=== PATIENT | female | born 1935 | race Caucasian/White ===

== ENCOUNTER 2017-02-11 12:22 | Inpatient (IN) | payer MEDICARE, OTHER ==
--- NOTE | 2017-02-11 13:03 | RAD ---
AP VIEW OF CHEST: Date: 02/11/17 INDICATION: Shortness of breath. Diminished lung sounds. COMPARISON: Prior exam dated 04/23/16. FINDINGS: Severe COPD change is stable. Cardiomediastinal silhouette is within normal limits. No definite air s pace consolidation, pleural effusion, or pneumothorax is evident. Chronic osseous changes are similar . IMPRESSION: No acute abnormality. POS: [facility]
[2017-02-11 13:53] LABS: #Eosinphils 0.2 thou/uL (0.0-0.7); #Monocytes 0.5 thou/uL (0.11-0.59); %Basophils 0.3 % (0.0-1.0); %Eosinophils 1.8 % (0.0-10.0); %Lymphocytes 11.5 % (21.0-51.0); %Monocytes 5.3 % (0.0-10.0); Hematocrit 35.5 % (36.0-47.0); Mean Platelet Volume 7.1 fL (7.4-10.4); Red Blood Cell (RBC) Count 3.46 mill/uL (4.20-5.40); White Blood Cell (WBC) Count 8.6 thou/uL (4.8-10.8)
[2017-02-11 14:21] LABS: ALT (SGPT) 23 U/L (8-55); AST (SGOT) 20 U/L (5-34); Alkaline Phosphatase 82 U/L (40-150); BUN (Urea Nitrogen) 16 mg/dL (9.8-20.1); Bilirubin, Total 0.3 mg/dL (0.2-1.2); CK (CPK) 131 U/L (29-168); Calc. Creatinine Clearance 0 mL/min (70-130); Calcium 9.6 mg/dL (7.8-10.44); Estimated GFR-MDRD 50; Globulin 3.3 g/dL (2.4-3.5); Protein, Total 7.1 g/dL (6.0-8.3)
[2017-02-11 14:26] LABS: Troponin I Less than 0.010 ng/mL (< 0.028)
[2017-02-11 14:30] LABS: Chloride 98 mmol/L (98-107)
[2017-02-11 14:33] LABS: Anion Gap 10 mmol/L (10-20); Carbon Dioxide 38 mmol/L (23-31)
[2017-02-11] MEDS ORDERED: Albuterol Sulfate 2.5 mg/0.5 ml Neb ONE (14:47)
[2017-02-11] MEDS ORDERED: Albuterol Sulfate 2.5 mg/3 ml Neb ONE (14:47)
[2017-02-11] MEDS ORDERED: Oxymetazoline HCl 0.05% ( 15 ML ) ONE (15:43)
--- NOTE | 2017-02-11 16:19 | HP ---
DATE OF ADMISSION: 02/11/2017 HISTORY OF PRESENT ILLNESS: Shortness of breath and cough with mucus production associated with no fever, no chills. This is going on for few days and gradually got worse to the point that the patien t called EMS and she was taken to the emergency room for further evaluation. She denies any nausea o r vomiting. She denies any other problems. Her artificial marble worker is Dr. Cifuentes. PAST MEDICAL HISTORY: 1. Severe chronic obstructive pulmonary disease, on O2 at home. 2. Hypothyroidism. 3. Hypertension. PAST SURGICAL HISTORY: 1. Thyroid resection. 2. Right fallopian tube removed. 3. Cardiac catheterization. SOCIAL HISTORY: Ex-smoker, quit when she was at the age of 66. She drinks alcohol on and off, mainl y wine. She denies any illicit drug use. FAMILY HISTORY: Strong family history for premature coronary artery disease, stroke and cancer. ALLERGIES: None. CODE STATUS: Full. CURRENT MEDICATIONS: To be obtained. REVIEW OF SYSTEMS: CONSTITUTIONAL: Negative for weight loss or gain. Negative for fever and chills. EYES: Negative for eye pain and eye discharge. ENT: Negative for epistaxis. Positive for nasal congestion and no stuffiness. CARDIOVASCULAR: Negative for palpitations and chest pain. RESPIRATORY: Positive for shortness of breath and productive cough. GASTROINTESTINAL: Negative for nausea and vomiting. GENITOURINARY: Negative for hematuria and dysuria. MUSCULOSKELETAL: Negative for pain and swelling. NEUROLOGIC: Negative for headache and dizziness. ONCOLOGY: Negative for easy bruising or clotting abnormalities. PHYSICAL EXAMINATION: VITAL SIGNS: Blood pressure is 110/52, pulse is 94, respiratory rate is 29, pulse oximetry is 93% on BiPAP. Her temperature is 98.1. HEENT: Atraumatic, normocephalic. Eyes: PERRLA. Sclerae nonicteric. Conjunctivae pinkish. The p atient wears the BiPAP mask, so the oral cavity is not examined. NECK: JVD negative. LUNGS: Very emphysematous. No wheezing, no crackles. HEART: S1, S2 normal. No S3, no S4. ABDOMEN: Soft, nontender, bowel sounds are present, no organomegaly. EXTREMITIES: No clubbing, cyanosis or edema. NEUROLOGIC: She is alert and oriented x4. There are no any specific findings or focal deficits. SKIN: No rash or erythema. LABORATORY AND X-RAY FINDINGS: Showed a white count of 8.6, hemoglobin 11.5, hematocrit 35.5, platel et count is 316, 81.2% neutrophils. Sodium 141, potassium 4.5, chloride 98, CO2 38, BUN 16, creatini ne 1.05. Glucose 143. Rest of chemistry within normal limits. Chest x-ray personally reviewed by desire martel, did not show any acute infiltrate. She has chronic changes in the mid and lower lobes along with severe COPD changes. EKG showed normal sinus rhythm, ventricular rate of 85 beats per minute, nonspe cific ST-T wave changes. This was personally reviewed by me. IMPRESSION: 1. Acute exacerbation of chronic obstructive pulmonary disease with negative testing for influenza A and B most likely viral infection with trigger. 2. Acute on chronic respiratory failure, on O2 at home. 3. Hypertension. 4. Hypothyroidism. PLAN: Full admission to MICU. Condition is guarded. IV normal saline at 100 mL per hour, DuoNebs q .4 h., Solu-Medrol 40 mg every 6 hours IV push after she received 125 mg per EMS, levofloxacin she was given 750 mg in the emergency room. We will continue the same dose. We will get Pulmonary consu ltation with Dr. Cifuentes. I am going to discontinue her BiPAP and switch her to nasal cannula if it is possible, and she will continue her home meds after review them and make some recommendations. We are going to keep her on deep venous thrombosis prophylaxis with Lovenox and SCDs and PUD prophylaxi s with H2 jose.
[2017-02-11 17:45] LABS: Troponin I 0.011 ng/mL (< 0.028)
[2017-02-11] MEDS ORDERED: Acetaminophen 325 MG TAB PO PRN (20:04)
[2017-02-11 20:54] LABS: Troponin I 0.011 ng/mL (< 0.028)
[2017-02-11] MEDS: Sodium Chloride 0.9% 1,000 ML IV SCH (20:54)
[2017-02-11] MEDS ORDERED: ALPRAZolam 0.25 MG TAB PO PRN (21:33)
[2017-02-11] MEDS: Famotidine 20 MG TAB PO SCH (21:49)
[2017-02-12 02:48] VITALS: BMI 21.4
[2017-02-12 05:00] LABS: #Lymphocytes 0.9 thou/uL (1.20-3.40); #Monocytes 0.2 thou/uL (0.11-0.59); #Neutrophils 8.6 thou/uL (1.40-6.50); %Eosinophils 0.5 % (0.0-10.0); %Lymphocytes 9.6 % (21.0-51.0); %Monocytes 1.9 % (0.0-10.0); Hematocrit 35.7 % (36.0-47.0); Mean Platelet Volume 7.3 fL (7.4-10.4); Red Blood Cell (RBC) Count 3.49 mill/uL (4.20-5.40); White Blood Cell (WBC) Count 9.8 thou/uL (4.8-10.8)
[2017-02-12 05:13] LABS: Anion Gap 14 mmol/L (10-20); BUN (Urea Nitrogen) 22 mg/dL (9.8-20.1); Calc. Creatinine Clearance 46 mL/min (70-130); Calcium 9.7 mg/dL (7.8-10.44); Carbon Dioxide 33 mmol/L (23-31); Chloride 99 mmol/L (98-107); Estimated GFR-MDRD 59
[2017-02-12] MEDS: Famotidine 20 MG TAB PO SCH ×2 (07:35→20:31)
[2017-02-12] MEDS: Sodium Chloride 0.9% 1,000 ML IV SCH ×2 (07:40→22:38)
[2017-02-12] MEDS: Losartan Potassium 25 MG TAB PO SCH (09:51)
[2017-02-12] MEDS: Amlodipine 5 MG TAB PO SCH (09:52)
--- NOTE | 2017-02-12 13:04 | PRG ---
DATE OF SERVICE: 02/12/2017 SUBJECTIVE: The patient is seen and examined at the bedside. She is feeling significantly better th is morning. Her shortness of breath improved. OBJECTIVE: VITAL SIGNS: Blood pressure is 142/81, pulse is 87, temperature is 98.6, and respiratory rate is flu ctuating from 26-32. She is on 3 liters by nasal cannula and she is saturating between 96% and 98%. HEENT: Atraumatic, normocephalic. Pupils are responding to light properly. NECK: Supple. JVD is plus bilaterally. LUNGS: Emphysematous. No wheezing, no rales. HEART: S1, S2, very distant. No S3, no S4. ABDOMEN: Soft, nontender. EXTREMITIES: No clubbing, cyanosis or edema. NEUROLOGIC: She is alert and oriented x4. There is not any motor or sensory deficit. LABORATORY DATA: Showed white count of 9.8, hemoglobin 11.3, hematocrit 35.7, platelet count is 329, 000. Chemistry showed sodium of 141, potassium 4.6, chloride 99, CO2 33, BUN 22, creatinine 0.91, gl ucose 141. Two sets of cardiac enzymes showed normal troponin. IMPRESSION: 1. Acute exacerbation of chronic obstructive pulmonary disease, most likely started as a viral infec tion. 2. Acute on chronic respiratory failure, on O2 at home. 3. Hypertension. 4. Hypothyroidism. PLAN: To continue DuoNebs q.4, Solu-Medrol 40 mg q.6 IV push and continue levofloxacin 750 mg IV pig gyback daily and we will obtain pulmonary consultation. We will continue her DVT prophylaxis and PUD prophylaxis as well.
--- NOTE | 2017-02-12 14:39 | CON ---
DATE OF CONSULTATION: 02/12/2017 HISTORY OF PRESENT ILLNESS: Ms. Rico is an 82-year-old female who sees Dr. Cifuentes, admitted wit h acute exacerbation and underlying chronic lung disease. She presented to the ER with a several day history of increasing shortness of breath and cough, but no fever or chills. In the ER, she was giv en a neb treatment without much relief. She is now admitted. On most days, she says she can walk up to a mile without getting markedly dyspneic. PAST MEDICAL HISTORY: Hypertension, COPD and hypothyroidism. PAST SURGICAL HISTORY: Thyroid surgery. SOCIAL AND FAMILY HISTORY: Former smoker, quit smoking 15 years ago. MEDICATIONS: List of medicine from home includes amlodipine 2.5, Singulair 10, losartan 50, Synthroi d 150, DuoNeb 5 a day, Xanax 0.125 and Brovana. REVIEW OF SYSTEMS: Ten-point negative. PHYSICAL EXAMINATION: GENERAL: In moderate distress. VITAL SIGNS: Respirations 25, temperature 98 and blood pressure 153/63. CHEST: Decreased breath sounds without any wheezing. Expirations prolonged. CARDIAC: Normal S1 and S2. No gallops. ABDOMEN: Soft. No masses. LABORATORY AND IMAGING DATA: White count 9,000, hemoglobin and hematocrit 11 and 35, platelet count 325. Electrolytes are normal. Chest x-ray was normal. Flu test was negative. IMPRESSION: Acute on chronic respiratory failure secondary to chronic obstructive pulmonary disease and pneumonia. Medicines are making her nervous and shaky. I will cut back on nebs to q.6 hours. We will add Duler a, ready to give her IV antibiotics. No evidence of any pneumonia. Probably switch her over to oral Levaquin. We will notify Dr. Cifuentes.
[2017-02-12] MEDS ORDERED: Arformoterol 15 MCG/2 ML NEB NEB SCH (18:30)
[2017-02-12] MEDS ORDERED: Budesonide 0.5 MG/2 ML NEB NEB SCH (18:30)
[2017-02-12] MEDS: Mometasone/Formoterol 120 PUFF INHALER INH SCH (18:58)
[2017-02-12] MEDS: Montelukast Sodium 10 mg Tablet PO SCH (20:31)
[2017-02-12] MEDS: ALPRAZolam 0.25 MG TAB PO PRN (20:42)
[2017-02-13] MEDS: Levothyroxine Sodium 150 MCG TAB PO SCH (04:37)
[2017-02-13] MEDS ORDERED: guaiFENesin/Codeine Phosphate 200 mg/20 mg 10 ml UD Cup PO PRN (07:42)
[2017-02-13] MEDS: Mometasone/Formoterol 120 PUFF INHALER INH SCH ×2 (08:44→18:52)
[2017-02-13] MEDS: Amlodipine 5 MG TAB PO SCH (08:47)
[2017-02-13] MEDS: Losartan Potassium 25 MG TAB PO SCH (08:47)
[2017-02-13] MEDS: Famotidine 20 MG TAB PO SCH ×2 (08:48→20:13)
--- NOTE | 2017-02-13 13:49 | PRG ---
DATE OF SERVICE: 02/13/2017 SUBJECTIVE: The patient is seen and examined at bedside. She is doing slightly better. Her breathi ng is improved. She was seen by a spanish interpreter who recommends to switch her to oral Levaquin and co ntinue IV steroids along with nebulizers. OBJECTIVE: VITAL SIGNS: Blood pressure is 134/64, pulse is 86, temperature is 98.5, respirations 24, and O2 sat uration is 94% on 3 liters by nasal cannula. HEENT: Eyes are PERRLA. Oral mucosa is moist. NECK: Supple. JVD +1 similar bilaterally. LUNGS: Very emphysematous. No crackles, no wheezing, no rales. HEART: S1, S2 normal, no S3, no S4. ABDOMEN: Soft, nontender, bowel sounds are present, no organomegaly. EXTREMITIES: No clubbing, cyanosis or edema. NEUROLOGIC: She is alert and oriented x4. There are not any sensory deficits present. LABORATORY DATA: None today. IMPRESSION: 1. Exacerbation of chronic obstructive pulmonary disease. 2. Acute on chronic respiratory failure, on home O2. 3. Hypertension. 4. Hypothyroidism. PLAN: To continue her IV steroids. Continue p.o. levofloxacin. Continue DuoNebs. This strength wa s cutback because of her tremor and anxiety she experienced with the full dose of DuoNebs. We are go ing to continue montelukast and inhaled steroids and we will continue close monitoring. So she is ve ry high risk for complications.
--- NOTE | 2017-02-13 13:52 | PRG ---
DATE OF SERVICE: 02/13/2017 SUBJECTIVE: This morning, she is awake, alert, responsive, complaining of cough, but no shortness of breath. PHYSICAL EXAMINATION: VITAL SIGNS: Sats are 93% on 3 liters, respiratory rate 20, pulse 75, blood pressure 130/80. CHEST: No wheezing. CARDIAC: Normal S1, S2. No gallops. ABDOMEN: Soft, no masses. IMPRESSION: 1. Chronic obstructive pulmonary disease exacerbation. 2. Bronchitis. PLAN: I add Tessalon, continue steroids, neb treatments, empiric antibiotics. We will notify Dr. Cifuentes in the morning.
[2017-02-13] MEDS: Benzonatate 100 MG CAP PO SCH ×2 (15:31→20:13)
[2017-02-13] MEDS: Montelukast Sodium 10 mg Tablet PO SCH (20:14)
[2017-02-13] MEDS: ALPRAZolam 0.25 MG TAB PO PRN (20:20)
[2017-02-14] MEDS: Levothyroxine Sodium 150 MCG TAB PO SCH (06:06)
[2017-02-14] MEDS: Mometasone/Formoterol 120 PUFF INHALER INH SCH ×2 (07:00→18:40)
[2017-02-14] MEDS: Losartan Potassium 25 MG TAB PO SCH (08:05)
[2017-02-14] MEDS: Famotidine 20 MG TAB PO SCH ×2 (08:06→19:53)
[2017-02-14] MEDS: Benzonatate 100 MG CAP PO SCH ×3 (08:06→19:53)
[2017-02-14] MEDS: Amlodipine 5 MG TAB PO SCH (08:06)
--- NOTE | 2017-02-14 08:24 | PRG ---
DATE OF SERVICE: 02/14/2017 SUBJECTIVE: She feels better, but not quite strong enough to go home. OBJECTIVE: VITAL SIGNS: Temperature is 97.5, pulse 77, blood pressure 176/75, O2 sat 97%, respiratory rate 20. HEENT: Unremarkable. NECK: No JVD. LUNGS: Distant, but clear breath sounds. CARDIAC: S1 and S2 regular. ABDOMEN: Soft. EXTREMITIES: No edema. ASSESSMENT: Chronic obstructive pulmonary disease with exacerbation. PLAN: 1. Initiate physical therapy. 2. I think that she can go home as early as tomorrow.
--- NOTE | 2017-02-14 18:38 | PDOC.PN ---
- Subjective Encounter Start Date: 02/14/17 Encounter Start Time: 18:36 Subjective: Seen and examined feeling better - Objective Resuscitation Status: Resuscitation Status FULL:Full Resuscitation Vital Signs & Weight: Vital Signs (12 hours) Temp Pulse Resp BP BP Pulse Ox 02/14/17 16:04 98.5 F 84 20 185/71 H 92 L 02/14/17 11:15 98.5 F 84 22 H 177/80 H 89 L 02/14/17 08:06 77 176/75 H 02/14/17 08:00 98.1 F 77 20 97 02/14/17 07:50 97.5 F L 77 20 176/75 H 97 02/14/17 06:57 81 14 89 L Weight Weight 138 lb 1.6 oz I&O: 02/13/17 02/14/17 02/15/17 06:59 06:59 06:59 Intake Total 3464 240 560 Output Total 750 Balance 2714 240 560 Result Diagrams: 02/12/17 04:32 02/12/17 04:31 Phys Exam - Physical Examination Constitutional: NAD HEENT: PERRLA, moist MMs, sclera anicteric, TM's clear Neck: no nodes, no JVD, supple, full ROM Respiratory: no wheezing Cardiovascular: RRR, no significant murmur, no rub Gastrointestinal: soft, non-tender, no distention, positive bowel sounds Musculoskeletal: pulses present Dx/Plan (1) Acute hypoxemic respiratory failure Code(s): J96.01 - ACUTE RESPIRATORY FAILURE WITH HYPOXIA Status: Acute (2) COPD exacerbation Code(s): J44.1 - CHRONIC OBSTRUCTIVE PULMONARY DISEASE W (ACUTE) EXACERBATION Status: Acute (3) Respiratory failure, chronic Code(s): J96.10 - CHRONIC RESPIRATORY FAILURE, UNSP W HYPOXIA OR HYPERCAPNIA Status: Acute Qualifiers: Respiratory failure complication: hypoxia and hypercapnia Qualified Code(s) : J96.11 - Chronic respiratory failure with hypoxia (4) Hypertension Code(s): I10 - ESSENTIAL (PRIMARY) HYPERTENSION Status: Chronic (5) Hypothyroidism Code(s): E03.9 - HYPOTHYROIDISM, UNSPECIFIED Status: Chronic - Plan continue antibiotics, PT/OT, social media senior associate, respiratory therapy Appreciate pulmonary input -: Dispo planning possibly next 24hrs * .
[2017-02-14] MEDS: Montelukast Sodium 10 mg Tablet PO SCH (19:53)
[2017-02-14] MEDS: ALPRAZolam 0.25 MG TAB PO PRN (22:28)
[2017-02-15] MEDS: Levothyroxine Sodium 150 MCG TAB PO SCH (04:50)
[2017-02-15] MEDS: Mometasone/Formoterol 120 PUFF INHALER INH SCH (06:22)
[2017-02-15 07:48] VITALS: TEMP 98.5
[2017-02-15] MEDS: Losartan Potassium 25 MG TAB PO SCH (08:44)
[2017-02-15] MEDS: Famotidine 20 MG TAB PO SCH (08:44)
[2017-02-15] MEDS: Amlodipine 5 MG TAB PO SCH (08:45)
[2017-02-15] MEDS: Benzonatate 100 MG CAP PO SCH (08:45)
--- NOTE | 2017-02-15 09:30 | PRG ---
DATE OF SERVICE: 02/15/2017 She feels better, but says she is still very weak and she is concerned about going home by herself. PHYSICAL EXAMINATION: VITAL SIGNS: Temperature 98.5, pulse 106, respirations 20, O2 sat 91%, blood pressure 160/79. HEENT: Unremarkable. NECK: No JVD. CHEST: Clear. No wheezing. CARDIAC: S1 and S2 regular. ABDOMEN: Soft. EXTREMITIES: No edema. ASSESSMENT: Chronic obstructive pulmonary disease with exacerbation. PLAN: I think she is stable to go home. I would finish out 7 days of Levaquin and taper her steroid s over a couple of weeks. She is likely to need some type of home health to assist her with her acti vities of daily living.
--- NOTE | 2017-02-15 11:49 | PDOC.PN ---
- Subjective Encounter Start Date: 02/15/17 Encounter Start Time: 11:30 Subjective: continued SOB, wheezing, coughing, and fatigue, improved from -: admit - Objective Resuscitation Status: Resuscitation Status FULL:Full Resuscitation MAR Reviewed: Yes Vital Signs & Weight: Vital Signs (12 hours) Temp Pulse Resp BP BP BP Pulse Ox 02/15/17 11:40 85 18 92 L 02/15/17 11:36 92 L 02/15/17 08:45 87 160/79 H 02/15/17 08:00 98.5 F 106 H 22 H 91 L 02/15/17 07:47 98.5 F 106 H 22 H 160/79 H 91 L 02/15/17 06:22 91 14 91 L 02/15/17 06:19 91 14 91 L 02/15/17 04:00 98.1 F 91 20 148/68 H 96 02/15/17 00:57 90 L 02/15/17 00:56 90 L 02/15/17 00:00 98.1 F 83 22 H 175/80 H 96 Weight Weight 138 lb 1.6 oz I&O: 02/14/17 02/15/17 02/16/17 06:59 06:59 06:59 Intake Total 240 560 120 Balance 240 560 120 Result Diagrams: 02/12/17 04:32 02/12/17 04:31 Phys Exam - Physical Examination Constitutional: NAD HEENT: moist MMs Respiratory: no rales, no rhonchi occ wheeze, moderate air movement throughout Cardiovascular: RRR Gastrointestinal: soft, positive bowel sounds Neurological: non-focal, moves all 4 limbs Psychiatric: normal affect, A&O x 3 Dx/Plan (1) Acute hypoxemic respiratory failure Code(s): J96.01 - ACUTE RESPIRATORY FAILURE WITH HYPOXIA Status: Acute (2) COPD exacerbation Code(s): J44.1 - CHRONIC OBSTRUCTIVE PULMONARY DISEASE W (ACUTE) EXACERBATION Status: Acute Plan: improved, ok to d/c home per pulmonology. (3) Hypertension Code(s): I10 - ESSENTIAL (PRIMARY) HYPERTENSION Status: Chronic (4) Hypothyroidism Code(s): E03.9 - HYPOTHYROIDISM, UNSPECIFIED Status: Chronic - Plan cont current plan of care, continue antibiotics D/C home with home health * . - Discharge Day Encounter end time: 12:00
[2017-02-15 12:57] VITALS: BP 175/70
--- NOTE | 2017-02-15 18:57 | DIS ---
DATE OF ADMISSION: 02/11/2017 DATE OF DISCHARGE: 02/15/2017 PRIMARY CARE PHYSICIAN: Janes Oconnor M.D. ADMISSION DIAGNOSES: 1. Acute exacerbation of chronic obstructive pulmonary disease. 2. Acute on chronic hypoxic respiratory failure. 3. Hypertension. 4. Hypothyroidism. DISCHARGE DIAGNOSES: 1. Acute exacerbation of chronic obstructive pulmonary disease. 2. Acute on chronic hypoxic respiratory failure. 3. Hypertension. 4. Hypothyroidism. PROCEDURES: None. CONSULTATIONS: Pulmonology, Dr. Kennedy. SUMMARY OF HOSPITAL COURSE: This is an 82-year-old white female with a known history of COPD who has had a few days history of worsening shortness of breath, cough and mucus production. She was seen i n the emergency room and diagnosed with COPD exacerbation and admitted. Dr. Kennedy was consulted for P ulmonology. The patient did not have a pneumonia on her chest x-ray and had a negative influenza nicky ting. She was put on antibiotics and IV steroids with improvement in her symptoms. She was eventual ly able to be weaned back down to her home level of oxygen. On day of discharge, the patient was see n by Dr. Cifuentes and was cleared to discharge home. DISCHARGE MANAGEMENT: Discharge home to her apartment at the [facility]. Follow up with Dr. Arjun dyer in [address] Cifuentes as instructed. [facility] and [facility]. ACTIVITIES: As tolerated. DIET: Regular diet. DISCHARGE MEDICATIONS: 1. Tessalon 100 mg 3 times a day as needed for cough, 30 tablets dispensed. 2. Levofloxacin 500 mg daily for 3 more days. 3. Prednisone 5 mg tablets 52 tablets taper for the next 3 weeks. The patient is also to resume her home medications. 4. Amlodipine 2.5 mg daily. 5. Singular 10 mg daily. 6. Losartan 50 mg daily. 7. Levothyroxine 150 mcg daily. 8. DuoNeb as needed. 9. Budesonide 0.5 mg neb twice a day. 10. Aspirin 81 mg daily. 11. Xanax 0.125 mg at night as needed. 12. Brovana 15 mcg neb twice a day.
[2017-02-15] MEDS ORDERED: predniSONE 20 MG TAB PO SCH (21:00)
== END 2017-02-15 15:21 | disposition home health service (06) | DRG 189 ==
LOC: ERS 12:22 → IMCU/EMU 15:30 → T4-A 02-13 15:49
PROVIDERS: ADMIT Internal Medicine; ATTEND Internal Medicine
DX: J96.21 Acute and chronic respiratory failure with hypoxia (principal); J44.1 Chronic obstructive pulmonary disease with (acute) exacerbation; Z99.81 Dependence on supplemental oxygen; I10 Essential (primary) hypertension; E03.9 Hypothyroidism, unspecified; Z87.891 Personal history of nicotine dependence
CPT/HCPCS: 36415; 71010; 80048; 80053; 82553; 84484; 85025; 93005; 94640; 94660; 94760; 96365; 96366; A4216; G8978-GP-CJ; G8979-GP-CJ; G8980-GP-CJ; J1956; J2920; J7611; J7620

== ENCOUNTER 2018-02-08 09:48 | Inpatient (IN) | payer MEDICARE, OTHER ==
[2018-02-08] MEDS ORDERED: methylPREDNISolone Sod Succ/PF 125 MG/2 ML VIAL ONE (09:59)
[2018-02-08] MEDS ORDERED: Magnesium 2 GM/50 ML BAG (IN WATER) ONE (09:59)
[2018-02-08 10:21] LABS: Hemoglobin 12.9 g/dL (12.0-16.0); Mean Corpuscular Hemoglobin 30.6 pg (27.0-31.0); Mean Corpuscular Volume 98.7 fL (78.0-98.0); Mean Platelet Volume 8.9 fL (7.4-10.4); Platelet Count 193 thou/uL (130-400); RBC Distribution Width 12.5 % (11.5-14.5); Red Blood Cell (RBC) Count 4.21 mill/uL (4.20-5.40); White Blood Cell (WBC) Count 8.7 thou/uL (4.8-10.8)
[2018-02-08 10:35] LABS: Band 8 % (5-11); Lymphocytes 29 % (21-51); MDiff Complete? YES; Monocytes 8 % (0-10); Neutrophil 55 % (42-75); RBC Morphology Normal
[2018-02-08 10:45] LABS: ALT (SGPT) 16 U/L (8-55); AST (SGOT) 22 U/L (5-34); Albumin 4.5 g/dL (3.4-4.8); Alkaline Phosphatase 94 U/L (40-150); Anion Gap 18 mmol/L (10-20); BUN (Urea Nitrogen) 18 mg/dL (9.8-20.1); Bilirubin, Total 0.6 mg/dL (0.2-1.2); Calc. Creatinine Clearance 0 mL/min (70-130); Calcium 9.4 mg/dL (7.8-10.44); Carbon Dioxide 28 mmol/L (23-31); Chloride 99 mmol/L (98-107); Estimated GFR-MDRD 61; Glucose 122 mg/dL (83-110); Potassium 4.7 mmol/L (3.5-5.1); Protein, Total 7.5 g/dL (6.0-8.3); Sodium 140 mmol/L (136-145)
--- NOTE | 2018-02-08 11:10 | RAD ---
FRONTAL RADIOGRAPH CHEST: DATE: 02/08/2018. COMPARISON: 02/11/2017. HISTORY: Fever and cough, shortness of breath. FINDINGS: There is atherosclerotic calcification in the aortic arch. There is diffuse increased linear interst itial density with pulmonary hyperinflation, consistent with COPD/extensive emphysematous change. Th mati findings are stable. There is stable increased density along the inferior aspect of the left jenn g base with blunting of the left costophrenic angle, unchanged when compared to prior imaging. No ac [place] findings are seen. IMPRESSION: Stable appearance of the chest. POS: [facility]
[2018-02-08 11:17] LABS: Actual Bicarbonate (HCO3a) 34.1 mEq/L (22-28); Base Excess (BEa) 4.8 mEq/L (-2.0 to +3.0); O2 Tension (PaO2) 98.3 mmHg (> 60.0); pH, Arterial 7.28 (7.35-7.45)
[2018-02-08 11:18] LABS: Analyzer IN Cardio ER; Calcium, Ionized 1.23 mmol/L (1.12-1.30); Carboxyhemoglobin (COHb) 0.4 gm% (0.0-3.0); Hemoglobin (Hb) 13.3 g/dL (12.0-16.0); Potassium - ABG Lab 3.94 mmol/L (3.70-5.30)
[2018-02-08 11:23] LABS: Puncture Site RRA
[2018-02-08 13:02] LABS: Bilirubin Negative (Negative); Blood, Urine Negative (Negative); Clarity CLEAR (Clear); Glucose, Urine (Dipstick) Negative (Negative); Leukocyte Negative (Negative); Nitrite Negative (Negative); Protein, Urine (Dipstick) 30 mg/dL (Neg-Trace); Specific Gravity, Urine 1.015 (1.002-1.036); Urobilinogen 0.2 mg/dL (0.2-1.0)
[2018-02-08 13:08] LABS: Bacteria/HPF None Seen HPF (None Seen); Pathc Cast-AUWi Flag 2.32 (0-2.49); RBC/HPF 0-3 HPF (0-3); Squamous Epithelial 0-3 HPF (0-3); WBC/HPF 0-3 HPF (0-3)
[2018-02-08 13:24] LABS: Hyaline Casts/LPF 4-6 HYALINE CAST LPF (0-3 Hyaline); Other Casts/LPF 0-3 FINELY GRAN LPF (0-3 Hyaline)
--- NOTE | 2018-02-08 14:12 | HP ---
PRIMARY CARE PHYSICIAN: Janes Oconnor MD. PRIMARY PAINT STRIPPER: Dr. Cifuentes. REASON FOR ADMISSION: Acute COPD exacerbation, acute on chronic respiratory failure with hypoxia and hypercapnia. HISTORY OF PRESENT ILLNESS: An 83-year-old female with a history of hypertension, hypothyroidism, severe COPD as well as chronic respiratory failure on home oxygen therapy, who was brought to emergency room for increasing shortness of breath. The patient's shortness of breath started on Tuesday. She was not able to sleep for next couple of days because of increasing shortness of breath. She started using her home prednisone as well as she was using more frequently nebulizer therapy without any improvement. Last night, she was not able to sleep at all. She was not able to eat, and she was having increasing amount of cough productive of white sputum. She did not have any chills, but she was feeling subjective fevers. She was feeling nasal congestion. She denies any flu-like illness. She denies any hemoptysis, chest pain, palpitation, or syncope. She denies any PNDs or lever extremity swelling, but she was not able to lie down flat because of shortness of breath. Because of coughing, she was getting soreness over her chest and abdomen. She denies any recent travel or sick exposure. She is up-to-date in her flu vaccination. REVIEW OF SYSTEMS: CONSTITUTIONAL: Negative for weight loss or gain, ability to conduct usual activities. SKIN: Negative for rash, itching. EYES: Negative for double vision, pain. ENT/MOUTH: Negative for nose bleeding, neck stiffness, pain, tenderness. CARDIOVASCULAR: Negative for palpitations, dyspnea on exertion, orthopnea. RESPIRATORY: Negative for shortness of breath, wheezing, cough, hemoptysis, fever or night sweats. GASTROINTESTINAL: Negative for poor appetite, abdominal pain, heartburn, nausea, vomiting, constipation, or diarrhea. GENITOURINARY: Negative for urgency, frequency, dysuria, nocturia. MUSCULOSKELETAL: Negative for pain, swelling. NEUROLOGIC/PSYCHIATRIC: Negative for anxiety, depression. ALLERGY/IMMUNOLOGIC: Negative for skin rash, bleeding tendency. Please see my HPI for pertinent positive and negative. All other review of systems reviewed and negative, except as mentioned in HPI. ALLERGIES: NO KNOWN DRUG ALLERGIES. CURRENT HOME MEDICATIONS: 1. Losartan 50 mg p.o. daily. 2. Synthroid 150 mcg p.o. daily. 3. Aspirin 81 mg daily. 4. Brovana 15 mcg nebulization twice daily. 5. Pulmicort nebulization twice daily. 6. Amlodipine 2.5 mg daily. 7. Singulair 10 mg p.o. daily. 8. Cetirizine 10 mg p.o. daily. PAST MEDICAL HISTORY: Hypertension, hypothyroidism, severe COPD, chronic respiratory failure on home oxygen therapy, allergic rhinitis. PAST SURGICAL HISTORY: Thyroidectomy. PAST PSYCHIATRIC HISTORY: Reviewed and negative. SOCIAL HISTORY: The patient drinks alcohol socially. She is former smoker. She quit smoking more than 15 years ago. She denies any other illicit drug abuse. She lives at home with family. FAMILY HISTORY: No family history of strong coronary artery disease, stroke, or cancer. EMERGENCY ROOM COURSE: The patient has received DuoNeb therapy x2, Solu-Medrol 125 mg, and magnesium sulfate 2 g. PHYSICAL EXAMINATION: VITAL SIGNS: On arrival, blood pressure 184/92, temperature 99.6, saturation 96% on BiPAP, pulse 125, respiratory rate 36, weight 65.7 kg. GENERAL: The patient is currently on BiPAP. She is in [id number] respiratory distress. The patient does not able to talk in full sentence. HEENT: Head; normocephalic, atraumatic. Eyes; pupils round, reactive to light. Extraocular muscles intact. ENT; oropharynx within normal limits. Moist mucous membranes. No oral lesion. No pharyngeal erythema. No exudate. NECK: Supple. No JVD. No thyromegaly. No carotid bruit. No jugular venous distention. LUNGS: Air entry significantly reduced. Accessory muscles of respiration in use. End expiratory wheezing heard. No rales. CARDIAC: S1, S2, regular, tachycardia. No murmur. No gallop. No rub. Distant heart sound. BACK: Unremarkable. No CVA tenderness. EXTREMITIES: Upper extremity, passive movement of all joints are normal. Lower extremity, no edema, good distal pulsation. ABDOMEN: Soft and benign without any tenderness. No suprapubic tenderness. NEUROLOGICAL: Nonfocal neurological examination. LABORATORY DATA: Significant labs: CBC; WBC 8.7, hemoglobin 12.9, platelet 193 with bandemia. ABG; pH of 7.28, bicarb of 34.1, CO2 of 75.0, O2 of 98.3, saturation of 96.7 on BiPAP. BMP; sodium 140, potassium 4.7, chloride 99, carbon dioxide 28, BUN 18, creatinine 0.88, glucose 122, calcium 9.4. Lactic acid 1.2. LFT; AST 22, ALT 16, alkaline phosphatase 94, albumin 4.5. Cardiac enzymes, troponin I is less than 0.010. BNP 344.0. ASSESSMENT AND PLAN: 1. Acute on chronic respiratory failure with hypoxia and hypercapnia. 2. Severe chronic obstructive pulmonary disease exacerbation. 3. Diastolic heart failure with a history of moderate to severe tricuspid regurgitation. 4. Hypertension. 5. Hypothyroidism. PLAN: 1. IMCU admission, Pulmonology consultation, BiPAP. 2. DuoNeb q.4 hourly and p.r.n., Brovana nebulization twice daily, Pulmicort nebulization twice daily, Solu-Medrol 40 mg IV q.6 hourly, Mucinex 600 mg twice daily, empiric antibiotic therapy with Levaquin 750 mg IV daily. We will resume the patient's home medication with losartan 50 mg daily, levothyroxine 150 mcg p.o. daily, amlodipine 2.5 mg p.o. daily, Singulair 10 mg p.o. daily. The patient is up-to-date in flu vaccination this year. We will obtain echocardiography to assess EF and other structural abnormality for elevated BNP. 3. DVT prophylaxis. Lovenox 40 mg subcu daily. 4. GI prophylaxis. Pepcid 20 mg p.o. b.i.d. CODE STATUS: Discussed with the patient and the patient's family member. The patient is a DNR. DISPOSITION PLAN: Based on clinical course, we are expecting the patient's stay in the hospital more than two midnights. Plan of care discussed with the patient in detail. Job ID: [id number]
[2018-02-08] MEDS ORDERED: Ondansetron ODT 4 MG TAB SL PRN (14:14)
[2018-02-08] MEDS ORDERED: hydrALAZINE 20 MG/ML VIAL SLOW IVP PRN (14:14)
[2018-02-08] MEDS ORDERED: Diabetic Tussin 200 MG/10 ML UDCUP PO PRN (14:14)
[2018-02-08] MEDS ORDERED: HYDROcodone/Acetaminophen 5/325 mg Tablet PO PRN (14:14)
[2018-02-08] MEDS ORDERED: Eucerin (Mineral Oil/Petrolatum,White) 30 gm Jar TOP PRN (14:14)
[2018-02-08] MEDS ORDERED: Bisacodyl 10 MG SUPP PR PRN (14:14)
[2018-02-08] MEDS ORDERED: Ondansetron PF 4 MG/2 ML Vial IVP PRN ×2 (14:14)
[2018-02-08] MEDS ORDERED: Sodium Chloride 0.65% Nasal 44 ML BOT EA NARE PRN (14:14)
[2018-02-08] MEDS ORDERED: Acetaminophen 325 MG TAB PO PRN ×2 (14:14)
[2018-02-08] MEDS ORDERED: Cepastat Lozenges 1 LOZ PO PRN (14:14)
[2018-02-08] MEDS ORDERED: Calcium Carbonate 500 MG ChewTAB PO PRN (14:14)
[2018-02-08] MEDS ORDERED: cloNIDine 0.1 MG TAB PO PRN (14:14)
[2018-02-08] MEDS ORDERED: Artificial Tears 18 DROP/0.9 ML EA EYE PRN (14:14)
[2018-02-08] MEDS ORDERED: Ondansetron ODT 4 MG TAB PO PRN (14:14)
[2018-02-08] MEDS ORDERED: Loratadine 10 MG TAB PO PRN (14:14)
[2018-02-08] MEDS ORDERED: Zolpidem Tartrate 5 MG TAB PO PRN (14:14)
[2018-02-08] MEDS ORDERED: Senokot S 8.6-50 MG TAB PO PRN (14:14)
[2018-02-08] MEDS ORDERED: Loperamide HCl 2 MG CAP PO PRN (14:14)
[2018-02-08 14:51] VITALS: BMI 22.1
[2018-02-08] MEDS: Budesonide 0.5 MG/2 ML NEB INH SCH (18:45)
[2018-02-08] MEDS: Arformoterol 15 MCG/2 ML NEB NEB SCH (18:46)
--- NOTE | 2018-02-08 21:11 | CON ---
DATE OF CONSULTATION: 02/08/2018 This encompassed 50 minutes of time; of that time, greater than 50% was spent with the patient and/or in the patient's unit in the hospital. REASON FOR CONSULTATION: COPD exacerbation. HISTORY OF PRESENT ILLNESS: Denia is an 83-year-old female, whom I have known for a number of years. Today, she called the office requesting antibiotics and steroids because she felt poorly. Within a few minutes, we called her back, but she had already headed to the emergency room. In the emergency room, she was felt bad enough to be intubated, but the patient refused. She has told me in the past that she does not want any type of resuscitative measures in the event of cardiopulmonary arrest. She was placed on BiPAP and did improve. She has subsequently been placed in the IMCU and continues to be dyspneic, although stable. PAST MEDICAL HISTORY: 1. Severe COPD, requiring home oxygen and a home trilogy ventilator. 2. Hypothyroidism. 3. Hypertension. 4. Anxiety. PAST SURGICAL HISTORY: 1. Radioactive iodine ablation for hypothyroidism. 2. Right fallopian tube removal. 3. Cardiac catheterization. FAMILY MEDICAL HISTORY: Remarkable for coronary artery disease. SOCIAL HISTORY: Smokes 1 to 2 packs a day for 50 years, quit in 2002. Very occasionally drinks alcohol. Retired from the insurance company. ALLERGIES: NONE. CURRENT MEDICATIONS: These were listed on the chart and are reviewed. REVIEW OF SYSTEMS: A 12-point review of systems is otherwise negative. PHYSICAL EXAMINATION: VITAL SIGNS: Temperature 97.9, pulse 91, blood pressure 129/67, and respiratory rate 25. GENERAL: She is awake. She is in moderate respiratory distress. HEENT: Pupils react. Sclerae are anicteric. Oropharynx clear. NECK: Without adenopathy, JVD, or bruits. LUNGS: Diminished breath sounds bilaterally with some expiratory wheezing. CARDIAC: S1 and S2 regular without murmur. ABDOMEN: Soft and nontender. EXTREMITIES: No clubbing, cyanosis, or edema. She has severe muscle wasting. LABORATORY DATA: White blood cell count 8.7, hematocrit 41.6, and platelet count 193. ABG, pH 7.28, pCO2 of 75, PO2 of 98, and is on BiPAP 12/6 with FiO2 of 50%. Sodium 140, potassium 4.7, chloride 99, CO2 of 28, BUN 18, creatinine 0.8, and glucose 122. BNP 344. Chest x-ray shows hyperinflation without evidence of mass, effusion, or infiltrate. ASSESSMENT: 1. Upper respiratory infection. 2. Chronic obstructive pulmonary disease with exacerbation. 3. End-stage chronic obstructive pulmonary disease. 4. Acute hypercapnic respiratory failure. PLAN: The patient will use BiPAP intermittently. We will continue her on nebulization treatments, steroids, and antibiotics. I have added Xanax for anxiety. Her prognosis is poor. She has a do not attempt resuscitation order on the chart, and I have reviewed this with her. Job ID: [id number]
[2018-02-08] MEDS: Famotidine 20 MG TAB PO SCH (22:53)
[2018-02-08] MEDS: guaiFENesin ER 600 MG TAB PO SCH (22:53)
[2018-02-08] MEDS: Montelukast Sodium 10 mg Tablet PO SCH (22:53)
[2018-02-09] MEDS: Levothyroxine 150 MCG TAB PO SCH (06:02)
[2018-02-09 06:09] LABS: #Lymphocytes 0.4 thou/uL (1.20-3.40); #Monocytes 0.4 thou/uL (0.11-0.59); #Neutrophils 4.3 thou/uL (1.40-6.50); %Eosinophils 0.2 % (0.0-10.0); %Lymphocytes 8.7 % (21.0-51.0); %Monocytes 7.3 % (0.0-10.0); %Neutrophils 83.9 % (42.0-75.0); Hemoglobin 11.7 g/dL (12.0-16.0); Mean Corpuscular HGB CONC 32.4 g/dL (32.0-36.0); Mean Corpuscular Hemoglobin 32.1 pg (27.0-31.0); Mean Platelet Volume 9.3 fL (7.4-10.4); Platelet Count 164 thou/uL (130-400); RBC Distribution Width 12.5 % (11.5-14.5); Red Blood Cell (RBC) Count 3.63 mill/uL (4.20-5.40); White Blood Cell (WBC) Count 5.1 thou/uL (4.8-10.8)
[2018-02-09 06:17] LABS: ALT (SGPT) 15 U/L (8-55); AST (SGOT) 18 U/L (5-34); Albumin 3.8 g/dL (3.4-4.8); Alkaline Phosphatase 77 U/L (40-150); Anion Gap 15 mmol/L (10-20); BUN (Urea Nitrogen) 36 mg/dL (9.8-20.1); Bilirubin, Total 0.5 mg/dL (0.2-1.2); Calc. Creatinine Clearance 34 mL/min (70-130); Calcium 8.9 mg/dL (7.8-10.44); Carbon Dioxide 29 mmol/L (23-31); Chloride 98 mmol/L (98-107); Estimated GFR-MDRD 40; Globulin 2.8 g/dL (2.4-3.5); Glucose 117 mg/dL (83-110); Potassium 4.9 mmol/L (3.5-5.1); Protein, Total 6.6 g/dL (6.0-8.3); Sodium 137 mmol/L (136-145)
[2018-02-09] MEDS: Arformoterol 15 MCG/2 ML NEB NEB SCH ×2 (07:23→18:25)
[2018-02-09] MEDS: Budesonide 0.5 MG/2 ML NEB INH SCH ×2 (07:28→18:26)
[2018-02-09] MEDS: Amlodipine 5 MG TAB PO SCH (10:10)
[2018-02-09] MEDS: Enoxaparin Sodium 40 MG/0.4 ML SYRINGE SC SCH (10:11)
[2018-02-09] MEDS: Famotidine 20 MG TAB PO SCH ×2 (10:11→20:23)
[2018-02-09] MEDS: guaiFENesin ER 600 MG TAB PO SCH ×2 (10:12→20:23)
[2018-02-09] MEDS: Fluticasone Propionate Nasal Spray 16 gm Bottle NASAL SCH (10:12)
[2018-02-09] MEDS: Losartan 25 MG TAB PO SCH (10:12)
--- NOTE | 2018-02-09 10:35 | PRG ---
DATE OF SERVICE: 02/09/2018 SUBJECTIVE: The patient is doing poorly. She is requiring BiPAP almost continuously. OBJECTIVE: VITAL SIGNS: Temperature 99.7, pulse 93, respirations 17, blood pressure 164/77. HEENT: Unremarkable. NECK: No JVD. LUNGS: End-expiratory wheezing bilaterally. CARDIAC: S1 and S2, regular. ABDOMEN: Soft. EXTREMITIES: No edema. LABORATORY DATA: White blood cell count 5.1, hematocrit 36, and platelet count 164. Sodium 137, potassium 4.9, chloride 98, CO2 of 29, BUN 36, creatinine 1.2, and glucose 117. BNP was 344 yesterday. ASSESSMENT: 1. Chronic obstructive pulmonary disease with exacerbation. 2. Acute hypoxic and hypercapnic respiratory failure, requiring mechanical ventilation. 3. End-stage chronic obstructive pulmonary disease. PLAN: Continue BiPAP, steroids, nebulization treatments, and antibiotics. Prognosis remains poor. She needs to remain in IM. Job ID: [id number]
--- NOTE | 2018-02-09 11:31 | PDOC.PN ---
- Subjective Encounter Start Date: 02/09/18 Encounter Start Time: 09:00 -: old records requested/rev pt is hypertensive, still tachypenic, still requires bipap, family bedside Patient seen and examined. No new complaints. No overnight events - Objective Resuscitation Status - Order Detail: 02/08/18 13:11 Resuscitation Status Routine Resuscitation Status: DNAR: NO Resuscitation Discussed with: discussed with pt and daughter IDA Reviewed: Yes Vital Signs & Weight: Vital Signs (12 hours) Temp Pulse Resp BP BP Pulse Ox 02/09/18 10:37 92 28 H 02/09/18 10:10 88 124/54 L 02/09/18 07:56 99.7 F H 93 17 164/77 H 91 L 02/09/18 07:23 95 24 H 95 02/09/18 04:00 98.3 F 82 22 H 135/63 02/09/18 02:56 74 02/09/18 02:55 73 16 100 02/09/18 00:00 98.5 F 77 22 H 112/60 95 Weight Weight 145 lb 8.081 oz I&O: 02/08/18 02/09/18 02/10/18 06:59 06:59 06:59 Intake Total 715 Output Total 0 Balance 715 Result Diagrams: 02/09/18 04:01 02/09/18 04:01 EKG Reviewed by me: Yes (sinus tachycardia) Phys Exam - Physical Examination Constitutional: NAD on bipap HEENT: PERRLA, moist MMs, sclera anicteric Neck: no JVD, supple Respiratory: no rales, wheezing present reduced air entry Cardiovascular: RRR, no significant murmur, no rub tachycardia Gastrointestinal: soft, non-tender, no distention, positive bowel sounds Musculoskeletal: no edema, pulses present Neurological: non-focal, normal sensation Lymphatic: no nodes Psychiatric: normal affect Deviation from normal: anxious Skin: no rash, normal turgor Dx/Plan (1) Acute on chronic respiratory failure with hypoxia and hypercapnia Code(s): J96.21 - ACUTE AND CHRONIC RESPIRATORY FAILURE WITH HYPOXIA; J96.22 - ACUTE AND CHRONIC RESPIRATORY FAILURE WITH HYPERCAPNIA Status: Acute (2) COPD exacerbation Code(s): J44.1 - CHRONIC OBSTRUCTIVE PULMONARY DISEASE W (ACUTE) EXACERBATION Status: Acute (3) Hypertension Code(s): I10 - ESSENTIAL (PRIMARY) HYPERTENSION Status: Chronic (4) Hypothyroidism Code(s): E03.9 - HYPOTHYROIDISM, UNSPECIFIED Status: Chronic - Plan cont current plan of care, plan discussed w/ family, continue antibiotics, respiratory therapy * continue bipap * continue current optimum medical therapy for copd with solumderol, levaquin, duoneb, brovana, pulmicort, mucinex, singulair * medication reviewed as below * symptomatic treatment * discussed with family bedside * will monitor in imcu * pulmonary following. Review of Systems - Review of Systems Constitutional: weakness. negative: fever, chills, sweats, malaise, other Respiratory: Cough, Shortness of Breath, SOB with Excertion, Wheezing. negative : Dry, Hemoptysis, Pleuritic Pain, Sputum Cardiovascular: negative: chest pain, palpitations, orthopnea, paroxysmal nocturnal dyspnea, edema, light headedness, other Gastrointestinal: negative: Nausea, Vomiting, Abdominal Pain, Diarrhea, Constipation, Melena, Hematochezia, Other Genitourinary: negative: Dysuria, Frequency, Incontinence, Hematuria, Retention , Other Musculoskeletal: negative: Neck Pain, Shoulder Pain, Arm Pain, Back Pain, Hand Pain, Leg Pain, Foot Pain, Other Skin: negative: Rash, Lesions, Mina, Bruising, Other - Medications/Allergies Allergies/Adverse Reactions: Allergies Allergy/AdvReac Type Severity Reaction Status Date / Time No Known Allergies Allergy Verified 02/08/18 17:22 Medications: Current Medications Acetaminophen (Tylenol) 650 mg PO Q4H PRN PRN Reason: Headache/Fever/Mild Pain (1-3) Hydrocodone Bitart/Acetaminophen ([place] 5/325) 1 tab PO Q4H PRN PRN Reason: Moderate Pain (4-6) Albuterol/Ipratropium (Duoneb) 3 ml NEB [id number] PRN PRN Reason: SOB &/or Wheezing Albuterol/Ipratropium (Duoneb) 3 ml NEB [id number] [facility] Last Admin: 02/09/18 10:37 Dose: 3 ml Alprazolam (Xanax) 0.25 mg PO TID PRN PRN Reason: Anxiety Amlodipine Besylate (Norvasc) 2.5 mg PO DAILY [facility] Last Admin: 02/09/18 10:10 Dose: 2.5 mg Arformoterol Tartrate (Brovana) 15 mcg NEB BID-RT [facility] Last Admin: 02/09/18 07:23 Dose: 15 mcg Artificial Tears (Tears Naturale) 2 drop EA EYE PRN PRN PRN Reason: Dry Eyes Aspirin (Aspirin Chewable) 81 mg PO DAILY [facility] Last Admin: 02/09/18 10:11 Dose: 81 mg Bisacodyl (Dulcolax) 10 mg [place] DAILYPRN PRN PRN Reason: Constipation Budesonide (Pulmicort Neb Solution) 0.5 mg INH BID-RT [facility] Last Admin: 02/09/18 07:28 Dose: 0.5 mg Calcium Carbonate (Tums) 1,000 mg PO Q4H PRN PRN Reason: Heartburn or Indigestion Clonidine (Catapres) 0.1 mg PO Q4H PRN PRN Reason: SBP Greater Than 170 Enoxaparin Sodium (Lovenox) 40 mg SC 0900 [facility] Last Admin: 02/09/18 10:11 Dose: 40 mg Famotidine (Pepcid) 20 mg PO BID [facility] Last Admin: 02/09/18 10:11 Dose: 20 mg Fluticasone Propionate (Flonase Nasal [place]) 0 gm NASAL DAILY [facility] Last Admin: 02/09/18 10:12 Dose: Not Given Guaifenesin (Mucinex) 600 mg PO Q12HR [facility] Last Admin: 02/09/18 10:12 Dose: Not Given Guaifenesin (Robitussin Sf) 200 mg PO Q4H PRN PRN Reason: Cough Hydralazine HCl (Apresoline) 10 mg SLOW IVP Q4H PRN PRN Reason: SBP > 180 and HR < 70 Levofloxacin 750 mg/ Device 150 mls @ 100 mls/hr IVPB Q24HR [facility] Last Admin: 02/08/18 15:30 Dose: 150 mls Levothyroxine Sodium (Synthroid) 150 mcg PO 0600 [facility] Last Admin: 02/09/18 06:02 Dose: 150 mcg Loperamide HCl (Imodium) 2 mg PO PRN PRN PRN Reason: Diarrhea/Loose Stools Loratadine (Claritin) 10 mg PO DAILYPRN PRN PRN Reason: Sinus Symptoms Losartan Potassium (Cozaar) 50 mg PO DAILY [facility] Last Admin: 02/09/18 10:12 Dose: 50 mg Methylprednisolone Sodium Succinate (Solu-Medrol) 40 mg IVP Q6HR [facility] Last Admin: 02/09/18 05:57 Dose: 40 mg Mineral Oil/White Petrolatum (Eucerin Cream) 0 gm TOP BIDPRN PRN PRN Reason: Dry Skin Montelukast Sodium (Singulair) 10 mg PO QPM [facility] Last Admin: 02/08/18 22:53 Dose: Not Given Ondansetron HCl (Zofran Odt) 4 mg PO Q6H PRN PRN Reason: Nausea/Vomiting Ondansetron HCl (Zofran) 4 mg IVP Q6H PRN PRN Reason: Nausea/Vomiting Senna/Docusate Sodium (Senokot S) 2 tab PO BID PRN PRN Reason: Constipation Sodium Chloride ([place] Nasal [place] 0.65%) 0 ml EA NARE QIDPRN PRN PRN Reason: Nasal Congestion Throat Lozenges (Cepastat Lozenges) 1 radha PO Q2H PRN PRN Reason: Sore Throat Zolpidem Tartrate (Ambien) 5 mg PO HSPRN PRN PRN Reason: Insomnia
[2018-02-09] MEDS: Montelukast Sodium 10 mg Tablet PO SCH (20:22)
[2018-02-10] MEDS: Levothyroxine 150 MCG TAB PO SCH (06:43)
[2018-02-10] MEDS: Budesonide 0.5 MG/2 ML NEB INH SCH ×2 (08:05→19:08)
[2018-02-10] MEDS: Arformoterol 15 MCG/2 ML NEB NEB SCH ×2 (08:06→19:08)
[2018-02-10] MEDS: Enoxaparin Sodium 40 MG/0.4 ML SYRINGE SC SCH (08:54)
[2018-02-10] MEDS: Losartan 25 MG TAB PO SCH (08:54)
[2018-02-10] MEDS: Famotidine 20 MG TAB PO SCH ×2 (08:55→20:35)
[2018-02-10] MEDS: Amlodipine 5 MG TAB PO SCH (08:55)
[2018-02-10] MEDS: Fluticasone Propionate Nasal Spray 16 gm Bottle NASAL SCH (08:56)
[2018-02-10] MEDS: guaiFENesin ER 600 MG TAB PO SCH ×2 (08:56→20:35)
--- NOTE | 2018-02-10 10:01 | PRG ---
DATE OF SERVICE: 02/10/2018 SUBJECTIVE: She is sitting up in a chair. She says she still does not feel much better. OBJECTIVE: VITAL SIGNS: On exam, temperature is 98.7, pulse 103, blood pressure 114/89, O2 saturation 99%, and respiratory rate 25. GENERAL: She is using accessory neck muscles to breathe. HEENT: Unremarkable. NECK: No JVD. LUNGS: Diminished breath sounds bilaterally without overt wheezing. CARDIAC: S1 and S2. Regular. ABDOMEN: Soft. EXTREMITIES: No edema. ASSESSMENT: 1. Chronic obstructive pulmonary disease with severe exacerbation. 2. Upper respiratory tract infection. PLAN: 1. Continue BiPAP as needed. 2. Continue antibiotics, steroids, and nebulization treatments. 3. I have adjusted the BiPAP. 4. She needs to stay in the [facility] for the time being. Job ID: [id number]
--- NOTE | 2018-02-10 13:04 | PDOC.PN ---
- Subjective Encounter Start Date: 02/10/18 Encounter Start Time: 09:00 Patient seen and examined. No new complaints. No overnight events still on bipap - Objective Resuscitation Status - Order Detail: 02/08/18 13:11 Resuscitation Status Routine Resuscitation Status: DNAR: NO Resuscitation Discussed with: discussed with pt and daughter IDA Reviewed: Yes Vital Signs & Weight: Vital Signs (12 hours) Temp Pulse Resp BP Pulse Ox 02/10/18 11:09 88 02/10/18 11:08 85 21 H 98 02/10/18 08:55 105 H 02/10/18 08:06 105 H 02/10/18 08:03 103 H 25 H 99 02/10/18 07:33 98.7 F 90 27 H 114/89 97 02/10/18 03:46 98.4 F 83 24 H 103/88 98 02/10/18 02:26 76 14 100 Weight Weight 126 lb 2 oz I&O: 02/09/18 02/10/18 02/11/18 06:59 06:59 06:59 Intake Total 715 980 Output Total 0 325 Balance 715 655 Result Diagrams: 02/09/18 04:01 02/09/18 04:01 Radiology Reviewed by me: Yes (echo report reviewed) EKG Reviewed by me: Yes Phys Exam - Physical Examination Constitutional: NAD HEENT: PERRLA, moist MMs, sclera anicteric Neck: no JVD, supple Respiratory: no rales, wheezing present air entry improving Cardiovascular: RRR, no significant murmur, no rub Gastrointestinal: soft, non-tender, no distention, positive bowel sounds Musculoskeletal: no edema, pulses present Neurological: non-focal, normal sensation Lymphatic: no nodes Psychiatric: normal affect Skin: no rash, normal turgor Dx/Plan (1) Acute on chronic respiratory failure with hypoxia and hypercapnia Code(s): J96.21 - ACUTE AND CHRONIC RESPIRATORY FAILURE WITH HYPOXIA; J96.22 - ACUTE AND CHRONIC RESPIRATORY FAILURE WITH HYPERCAPNIA Status: Acute (2) COPD exacerbation Code(s): J44.1 - CHRONIC OBSTRUCTIVE PULMONARY DISEASE W (ACUTE) EXACERBATION Status: Acute (3) Hypertension Code(s): I10 - ESSENTIAL (PRIMARY) HYPERTENSION Status: Chronic (4) Hypothyroidism Code(s): E03.9 - HYPOTHYROIDISM, UNSPECIFIED Status: Chronic - Plan cont current plan of care, continue antibiotics, respiratory therapy * continue bipap * continue current maximum treatment for copd as below * medication reviewed as below * symptomatic treatment * will monitor in imcu * pulmonary following. Review of Systems - Review of Systems Eyes: negative: Pain, Vision Change, Conjunctivae Inflammation, Eyelid Inflammation, Redness, Other ENT: negative: Ear Pain, Ear Discharge, Nose Pain, Nose Discharge, Nose Congestion, Mouth Pain, Mouth Swelling, Throat Pain, Throat Swelling, Other Respiratory: Cough, Shortness of Breath, SOB with Excertion. negative: Dry, Hemoptysis, Pleuritic Pain, Sputum, Wheezing Cardiovascular: negative: chest pain, palpitations, orthopnea, paroxysmal nocturnal dyspnea, edema, light headedness, other Gastrointestinal: negative: Nausea, Vomiting, Abdominal Pain, Diarrhea, Constipation, Melena, Hematochezia, Other Genitourinary: negative: Dysuria, Frequency, Incontinence, Hematuria, Retention , Other Musculoskeletal: negative: Neck Pain, Shoulder Pain, Arm Pain, Back Pain, Hand Pain, Leg Pain, Foot Pain, Other - Medications/Allergies Allergies/Adverse Reactions: Allergies Allergy/AdvReac Type Severity Reaction Status Date / Time No Known Allergies Allergy Verified 02/08/18 17:22 Medications: Current Medications Acetaminophen (Tylenol) 650 mg PO Q4H PRN PRN Reason: Headache/Fever/Mild Pain (1-3) Hydrocodone Bitart/Acetaminophen ([place] 5/325) 1 tab PO Q4H PRN PRN Reason: Moderate Pain (4-6) Albuterol/Ipratropium (Duoneb) 3 ml NEB [id number] PRN PRN Reason: SOB &/or Wheezing Albuterol/Ipratropium (Duoneb) 3 ml NEB [id number] [facility] Last Admin: 02/10/18 11:08 Dose: 3 ml Alprazolam (Xanax) 0.25 mg PO TID PRN PRN Reason: Anxiety Amlodipine Besylate (Norvasc) 2.5 mg PO DAILY [facility] Last Admin: 02/10/18 08:55 Dose: 2.5 mg Arformoterol Tartrate (Brovana) 15 mcg NEB BID-RT [facility] Last Admin: 02/10/18 08:06 Dose: 15 mcg Artificial Tears (Tears Naturale) 2 drop EA EYE PRN PRN PRN Reason: Dry Eyes Aspirin (Aspirin Chewable) 81 mg PO DAILY [facility] Last Admin: 02/10/18 08:55 Dose: 81 mg Bisacodyl (Dulcolax) 10 mg [place] DAILYPRN PRN PRN Reason: Constipation Budesonide (Pulmicort Neb Solution) 0.5 mg INH BID-RT [facility] Last Admin: 02/10/18 08:05 Dose: 0.5 mg Calcium Carbonate (Tums) 1,000 mg PO Q4H PRN PRN Reason: Heartburn or Indigestion Clonidine (Catapres) 0.1 mg PO Q4H PRN PRN Reason: SBP Greater Than 170 Enoxaparin Sodium (Lovenox) 40 mg SC 0900 [facility] Last Admin: 02/10/18 08:54 Dose: 40 mg Famotidine (Pepcid) 20 mg PO BID [facility] Last Admin: 02/10/18 08:55 Dose: 20 mg Fluticasone Propionate (Flonase Nasal [place]) 0 gm NASAL DAILY [facility] Last Admin: 02/10/18 08:56 Dose: Not Given Guaifenesin (Mucinex) 600 mg PO Q12HR [facility] Last Admin: 02/10/18 08:56 Dose: Not Given Guaifenesin (Robitussin Sf) 200 mg PO Q4H PRN PRN Reason: Cough Hydralazine HCl (Apresoline) 10 mg SLOW IVP Q4H PRN PRN Reason: SBP > 180 and HR < 70 Levofloxacin 750 mg/ Device 150 mls @ 100 mls/hr IVPB Q24HR [facility] Last Admin: 02/09/18 15:26 Dose: 150 mls Levothyroxine Sodium (Synthroid) 150 mcg PO 0600 [facility] Last Admin: 02/10/18 06:43 Dose: 150 mcg Loperamide HCl (Imodium) 2 mg PO PRN PRN PRN Reason: Diarrhea/Loose Stools Loratadine (Claritin) 10 mg PO DAILYPRN PRN PRN Reason: Sinus Symptoms Losartan Potassium (Cozaar) 50 mg PO DAILY [facility] Last Admin: 02/10/18 08:54 Dose: 50 mg Methylprednisolone Sodium Succinate (Solu-Medrol) 40 mg IVP Q6HR [facility] Last Admin: 02/10/18 06:43 Dose: 40 mg Mineral Oil/White Petrolatum (Eucerin Cream) 0 gm TOP BIDPRN PRN PRN Reason: Dry Skin Montelukast Sodium (Singulair) 10 mg PO QPM [facility] Last Admin: 02/09/18 20:22 Dose: 10 mg Ondansetron HCl (Zofran Odt) 4 mg PO Q6H PRN PRN Reason: Nausea/Vomiting Ondansetron HCl (Zofran) 4 mg IVP Q6H PRN PRN Reason: Nausea/Vomiting Senna/Docusate Sodium (Senokot S) 2 tab PO BID PRN PRN Reason: Constipation Sodium Chloride ([place] Nasal [place] 0.65%) 0 ml EA NARE QIDPRN PRN PRN Reason: Nasal Congestion Throat Lozenges (Cepastat Lozenges) 1 radha PO Q2H PRN PRN Reason: Sore Throat Zolpidem Tartrate (Ambien) 5 mg PO HSPRN PRN PRN Reason: Insomnia
[2018-02-10] MEDS: ALPRAZolam 0.25 MG TAB PO PRN (13:34)
[2018-02-10] MEDS: Montelukast Sodium 10 mg Tablet PO SCH (20:35)
[2018-02-11] MEDS: Levothyroxine 150 MCG TAB PO SCH (06:22)
[2018-02-11] MEDS: Arformoterol 15 MCG/2 ML NEB NEB SCH ×2 (07:45→18:25)
[2018-02-11] MEDS: Budesonide 0.5 MG/2 ML NEB INH SCH ×2 (07:45→18:25)
[2018-02-11] MEDS: guaiFENesin ER 600 MG TAB PO SCH ×2 (08:56→21:13)
[2018-02-11] MEDS: Losartan 25 MG TAB PO SCH (08:56)
[2018-02-11] MEDS: Famotidine 20 MG TAB PO SCH ×2 (08:57→21:12)
[2018-02-11] MEDS: Enoxaparin Sodium 40 MG/0.4 ML SYRINGE SC SCH (08:57)
[2018-02-11] MEDS: Amlodipine 5 MG TAB PO SCH (08:57)
[2018-02-11] MEDS: Fluticasone Propionate Nasal Spray 16 gm Bottle NASAL SCH (08:58)
--- NOTE | 2018-02-11 10:42 | PDOC.PN ---
- Subjective Encounter Start Date: 02/11/18 Encounter Start Time: 09:45 pt is not using bipap, as mask is not fiitting well, still tachypeic - Objective Resuscitation Status - Order Detail: 02/08/18 13:11 Resuscitation Status Routine Resuscitation Status: DNAR: NO Resuscitation Discussed with: discussed with pt and daughter IDA Reviewed: Yes Vital Signs & Weight: Vital Signs (12 hours) Temp Pulse Resp BP Pulse Ox 02/11/18 10:31 92 24 H 92 L 02/11/18 08:57 88 02/11/18 07:57 94 L 02/11/18 07:44 88 22 H 95 02/11/18 07:28 98.0 F 91 25 H 91/55 L 94 L 02/11/18 04:00 98.1 F 81 17 117/52 L 98 02/11/18 02:33 93 17 97 02/11/18 00:00 98.8 F 89 20 122/62 100 02/10/18 22:46 90 27 H 98 Weight Weight 126 lb 2 oz I&O: 02/10/18 02/11/18 02/12/18 06:59 06:59 06:59 Intake Total 980 260 Output Total 325 580 Balance 655 -320 Result Diagrams: 02/09/18 04:01 02/09/18 04:01 EKG Reviewed by me: Yes (tachycardia) Phys Exam - Physical Examination mild respi distress HEENT: PERRLA, moist MMs, sclera anicteric Neck: no JVD, supple reduced air entry both side Cardiovascular: RRR, no significant murmur, no rub tachycardia Gastrointestinal: soft, non-tender, no distention Musculoskeletal: no edema, pulses present Neurological: non-focal, normal sensation Psychiatric: A&O x 3 Deviation from normal: anxious Skin: no rash, normal turgor Dx/Plan (1) Acute on chronic respiratory failure with hypoxia and hypercapnia Code(s): J96.21 - ACUTE AND CHRONIC RESPIRATORY FAILURE WITH HYPOXIA; J96.22 - ACUTE AND CHRONIC RESPIRATORY FAILURE WITH HYPERCAPNIA Status: Acute (2) COPD exacerbation Code(s): J44.1 - CHRONIC OBSTRUCTIVE PULMONARY DISEASE W (ACUTE) EXACERBATION Status: Acute (3) Hypertension Code(s): I10 - ESSENTIAL (PRIMARY) HYPERTENSION Status: Chronic (4) Hypothyroidism Code(s): E03.9 - HYPOTHYROIDISM, UNSPECIFIED Status: Chronic - Plan cont current plan of care, plan discussed w/ family, continue antibiotics, respiratory therapy * continue BIPAP * continue current maximum treatment for copd as below * medication reviewed as below * symptomatic treatment * update plan to family bedside. Review of Systems - Review of Systems ENT: negative: Ear Pain, Ear Discharge, Nose Pain, Nose Discharge, Nose Congestion, Mouth Pain, Mouth Swelling, Throat Pain, Throat Swelling, Other Respiratory: Cough, Shortness of Breath, SOB with Excertion. negative: Dry, Hemoptysis, Pleuritic Pain, Sputum, Wheezing Cardiovascular: negative: chest pain, palpitations, orthopnea, paroxysmal nocturnal dyspnea, edema, light headedness, other Gastrointestinal: negative: Nausea, Vomiting, Abdominal Pain, Diarrhea, Constipation, Melena, Hematochezia, Other Genitourinary: negative: Dysuria, Frequency, Incontinence, Hematuria, Retention , Other Musculoskeletal: negative: Neck Pain, Shoulder Pain, Arm Pain, Back Pain, Hand Pain, Leg Pain, Foot Pain, Other Skin: negative: Rash, Lesions, Mina, Bruising, Other - Medications/Allergies Allergies/Adverse Reactions: Allergies Allergy/AdvReac Type Severity Reaction Status Date / Time No Known Allergies Allergy Verified 02/08/18 17:22 Medications: Current Medications Acetaminophen (Tylenol) 650 mg PO Q4H PRN PRN Reason: Headache/Fever/Mild Pain (1-3) Hydrocodone Bitart/Acetaminophen ([place] 5/325) 1 tab PO Q4H PRN PRN Reason: Moderate Pain (4-6) Albuterol/Ipratropium (Duoneb) 3 ml NEB [id number] PRN PRN Reason: SOB &/or Wheezing Albuterol/Ipratropium (Duoneb) 3 ml NEB [id number] [facility] Last Admin: 02/11/18 10:31 Dose: 3 ml Alprazolam (Xanax) 0.25 mg PO TID PRN PRN Reason: Anxiety Last Admin: 02/10/18 13:34 Dose: 0.25 mg Amlodipine Besylate (Norvasc) 2.5 mg PO DAILY [facility] Last Admin: 02/11/18 08:57 Dose: 2.5 mg Arformoterol Tartrate (Brovana) 15 mcg NEB BID-RT [facility] Last Admin: 02/11/18 07:45 Dose: 15 mcg Artificial Tears (Tears Naturale) 2 drop EA EYE PRN PRN PRN Reason: Dry Eyes Aspirin (Aspirin Chewable) 81 mg PO DAILY [facility] Last Admin: 02/11/18 08:56 Dose: 81 mg Bisacodyl (Dulcolax) 10 mg [place] DAILYPRN PRN PRN Reason: Constipation Budesonide (Pulmicort Neb Solution) 0.5 mg INH BID-RT [facility] Last Admin: 02/11/18 07:45 Dose: 0.5 mg Calcium Carbonate (Tums) 1,000 mg PO Q4H PRN PRN Reason: Heartburn or Indigestion Clonidine (Catapres) 0.1 mg PO Q4H PRN PRN Reason: SBP Greater Than 170 Enoxaparin Sodium (Lovenox) 40 mg SC 0900 [facility] Last Admin: 02/11/18 08:57 Dose: 40 mg Famotidine (Pepcid) 20 mg PO BID [facility] Last Admin: 02/11/18 08:57 Dose: 20 mg Fluticasone Propionate (Flonase Nasal [place]) 0 gm NASAL DAILY [facility] Last Admin: 02/11/18 08:58 Dose: Not Given Guaifenesin (Mucinex) 600 mg PO Q12HR [facility] Last Admin: 02/11/18 08:56 Dose: 600 mg Guaifenesin (Robitussin Sf) 200 mg PO Q4H PRN PRN Reason: Cough Hydralazine HCl (Apresoline) 10 mg SLOW IVP Q4H PRN PRN Reason: SBP > 180 and HR < 70 Levofloxacin 750 mg/ Device 150 mls @ 100 mls/hr IVPB Q24HR [facility] Last Admin: 02/10/18 15:34 Dose: 150 mls Levothyroxine Sodium (Synthroid) 150 mcg PO 0600 [facility] Last Admin: 02/11/18 06:22 Dose: 150 mcg Loperamide HCl (Imodium) 2 mg PO PRN PRN PRN Reason: Diarrhea/Loose Stools Loratadine (Claritin) 10 mg PO DAILYPRN PRN PRN Reason: Sinus Symptoms Losartan Potassium (Cozaar) 50 mg PO DAILY [facility] Last Admin: 02/11/18 08:56 Dose: 50 mg Methylprednisolone Sodium Succinate (Solu-Medrol) 40 mg IVP Q6HR [facility] Last Admin: 02/11/18 06:22 Dose: 40 mg Mineral Oil/White Petrolatum (Eucerin Cream) 0 gm TOP BIDPRN PRN PRN Reason: Dry Skin Montelukast Sodium (Singulair) 10 mg PO QPM [facility] Last Admin: 02/10/18 20:35 Dose: 10 mg Ondansetron HCl (Zofran Odt) 4 mg PO Q6H PRN PRN Reason: Nausea/Vomiting Ondansetron HCl (Zofran) 4 mg IVP Q6H PRN PRN Reason: Nausea/Vomiting Senna/Docusate Sodium (Senokot S) 2 tab PO BID PRN PRN Reason: Constipation Sodium Chloride ([place] Nasal [place] 0.65%) 0 ml EA NARE QIDPRN PRN PRN Reason: Nasal Congestion Throat Lozenges (Cepastat Lozenges) 1 radha PO Q2H PRN PRN Reason: Sore Throat Zolpidem Tartrate (Ambien) 5 mg PO HSPRN PRN PRN Reason: Insomnia
[2018-02-11] MEDS: ALPRAZolam 0.25 MG TAB PO PRN (11:34)
--- NOTE | 2018-02-11 13:46 | EKG ---
Test Reason : SOB Blood Pressure : / mmHG Vent. Rate : 115 BPM Atrial Rate : 174 BPM P-R Int : 000 ms QRS Dur : 094 ms QT Int : 298 ms P-R-T Axes : 000 -46 057 degrees QTc Int : 412 ms Poor data quality, interpretation may be adversely affected Undetermined rhythm Left axis deviation Incomplete right bundle branch block Abnormal ECG Multifocal Premature ventricular complexes Confirmed by CATHY LESLIE ([id number]), brands editor SAÚL PINK ([id number]) on 02/11/2018 1:46:30 PM Referred By: LORRI Confirmed By:CATHY LESLIE
--- NOTE | 2018-02-11 21:06 | PRG ---
DATE OF SERVICE: 02/11/2018 SUBJECTIVE: Denia Rico is complaining of being weak, but feeling a little better. OBJECTIVE: VITAL SIGNS: She is afebrile, heart rate is 96, respiratory rate is in the 20s to low 30s, oximetry is 99%. She is on and off BiPAP. GENERAL: She had just eaten lunch when I saw her. LUNGS: Distant with faint wheezes. HEART: Regular rhythm. ABDOMEN: Soft. EXTREMITIES: Without clubbing, cyanosis, or edema. IMPRESSION: Severe underlying chronic obstructive pulmonary disease with exacerbation, requiring BiPAP. She really likes the BiPAP, which she says she is feeling better than she did yesterday, and wants to continue to intermittently wear the BiPAP. She tolerates it extremely well. We will continue with this plan and continue to keep her in the intermediate care unit, and watch her closely. She has no signs on exam of respiratory muscle fatigue. Job ID: [id number]
[2018-02-11] MEDS: Montelukast Sodium 10 mg Tablet PO SCH (21:12)
[2018-02-12] MEDS: Levothyroxine 150 MCG TAB PO SCH (06:05)
[2018-02-12] MEDS: Budesonide 0.5 MG/2 ML NEB INH SCH ×2 (07:33→18:28)
[2018-02-12] MEDS: Arformoterol 15 MCG/2 ML NEB NEB SCH (07:34)
[2018-02-12] MEDS: Enoxaparin Sodium 40 MG/0.4 ML SYRINGE SC SCH (09:58)
[2018-02-12] MEDS: Famotidine 20 MG TAB PO SCH ×2 (09:59→20:26)
[2018-02-12] MEDS: Losartan 25 MG TAB PO SCH (09:59)
[2018-02-12] MEDS: Amlodipine 5 MG TAB PO SCH (09:59)
[2018-02-12] MEDS: guaiFENesin ER 600 MG TAB PO SCH ×4 (09:59→20:28)
[2018-02-12] MEDS: Fluticasone Propionate Nasal Spray 16 gm Bottle NASAL SCH (10:08)
--- NOTE | 2018-02-12 10:53 | PDOC.PN ---
- Subjective Encounter Start Date: 02/12/18 Encounter Start Time: 09:15 Patient seen and examined. No new complaints. No overnight events still she has tachypnea and needs bipap - Objective Resuscitation Status - Order Detail: 02/08/18 13:11 Resuscitation Status Routine Resuscitation Status: DNAR: NO Resuscitation Discussed with: discussed with pt and daughter IDA Reviewed: Yes Vital Signs & Weight: Vital Signs (12 hours) Temp Pulse Resp BP BP Pulse Ox 02/12/18 09:59 98 139/66 02/12/18 08:05 98 02/12/18 07:31 79 24 H 97 02/12/18 07:23 96.5 F L 83 24 H 149/83 H 93 L 02/12/18 04:00 97.5 F L 83 14 103/52 L 99 02/12/18 02:24 85 20 99 02/12/18 00:00 97.1 F L 81 13 113/56 L 100 Weight Weight 126 lb 12.8 oz I&O: 02/11/18 02/12/18 02/13/18 06:59 06:59 06:59 Intake Total 260 1060 Output Total 580 650 Balance -320 410 Result Diagrams: 02/09/18 04:01 02/09/18 04:01 EKG Reviewed by me: Yes (nsr) Phys Exam - Physical Examination Constitutional: NAD mild respi distress alert and awake HEENT: PERRLA, sclera anicteric Neck: no JVD, supple reduced air entry, purselip breathing, Cardiovascular: RRR, no significant murmur, no rub Gastrointestinal: soft, non-tender, no distention, positive bowel sounds Musculoskeletal: no edema, pulses present Neurological: non-focal, normal sensation Lymphatic: no nodes Psychiatric: normal affect Skin: no rash, normal turgor Dx/Plan (1) Acute on chronic respiratory failure with hypoxia and hypercapnia Code(s): J96.21 - ACUTE AND CHRONIC RESPIRATORY FAILURE WITH HYPOXIA; J96.22 - ACUTE AND CHRONIC RESPIRATORY FAILURE WITH HYPERCAPNIA Status: Acute (2) COPD exacerbation Code(s): J44.1 - CHRONIC OBSTRUCTIVE PULMONARY DISEASE W (ACUTE) EXACERBATION Status: Acute (3) Hypertension Code(s): I10 - ESSENTIAL (PRIMARY) HYPERTENSION Status: Chronic (4) Hypothyroidism Code(s): E03.9 - HYPOTHYROIDISM, UNSPECIFIED Status: Chronic - Plan cont current plan of care, plan discussed w/ family, continue antibiotics, PT/OT , licensed clinical social worker, respiratory therapy * she expressed to go to [facility] on discharge * medication reviewed as below * symptomatic treatment * continue bipap * continue maximum treatment for copd * she is not ready for discharge, she needs more time . Review of Systems - Review of Systems Constitutional: weakness. negative: fever, chills, sweats, malaise, other ENT: negative: Ear Pain, Ear Discharge, Nose Pain, Nose Discharge, Nose Congestion, Mouth Pain, Mouth Swelling, Throat Pain, Throat Swelling, Other Respiratory: Cough, Shortness of Breath, SOB with Excertion, Wheezing. negative : Dry, Hemoptysis, Pleuritic Pain, Sputum Cardiovascular: negative: chest pain, palpitations, orthopnea, paroxysmal nocturnal dyspnea, edema, light headedness, other Gastrointestinal: negative: Nausea, Vomiting, Abdominal Pain, Diarrhea, Constipation, Melena, Hematochezia, Other Genitourinary: negative: Dysuria, Frequency, Incontinence, Hematuria, Retention , Other Musculoskeletal: negative: Neck Pain, Shoulder Pain, Arm Pain, Back Pain, Hand Pain, Leg Pain, Foot Pain, Other Skin: negative: Rash, Lesions, Mina, Bruising, Other - Medications/Allergies Allergies/Adverse Reactions: Allergies Allergy/AdvReac Type Severity Reaction Status Date / Time No Known Allergies Allergy Verified 02/08/18 17:22 Medications: Current Medications Acetaminophen (Tylenol) 650 mg PO Q4H PRN PRN Reason: Headache/Fever/Mild Pain (1-3) Hydrocodone Bitart/Acetaminophen ([place] 5/325) 1 tab PO Q4H PRN PRN Reason: Moderate Pain (4-6) Albuterol/Ipratropium (Duoneb) 3 ml NEB [id number] PRN PRN Reason: SOB &/or Wheezing Albuterol/Ipratropium (Duoneb) 3 ml NEB [id number] [facility] Last Admin: 02/12/18 10:52 Dose: 3 ml Alprazolam (Xanax) 0.25 mg PO TID PRN PRN Reason: Anxiety Last Admin: 02/11/18 11:34 Dose: 0.25 mg Amlodipine Besylate (Norvasc) 2.5 mg PO DAILY [facility] Last Admin: 02/12/18 09:59 Dose: 2.5 mg Artificial Tears (Tears Naturale) 2 drop EA EYE PRN PRN PRN Reason: Dry Eyes Aspirin (Aspirin Chewable) 81 mg PO DAILY [facility] Last Admin: 02/12/18 09:59 Dose: 81 mg Bisacodyl (Dulcolax) 10 mg [place] DAILYPRN PRN PRN Reason: Constipation Budesonide (Pulmicort Neb Solution) 0.5 mg INH BID-RT [facility] Last Admin: 02/12/18 07:33 Dose: 0.5 mg Calcium Carbonate (Tums) 1,000 mg PO Q4H PRN PRN Reason: Heartburn or Indigestion Clonidine (Catapres) 0.1 mg PO Q4H PRN PRN Reason: SBP Greater Than 170 Enoxaparin Sodium (Lovenox) 40 mg SC 0900 [facility] Last Admin: 02/12/18 09:58 Dose: 40 mg Famotidine (Pepcid) 20 mg PO BID [facility] Last Admin: 02/12/18 09:59 Dose: 20 mg Fluticasone Propionate (Flonase Nasal [place]) 0 gm NASAL DAILY [facility] Last Admin: 02/12/18 10:08 Dose: Not Given Guaifenesin (Mucinex) 600 mg PO Q12HR [facility] Last Admin: 02/12/18 10:09 Dose: Not Given Guaifenesin (Robitussin Sf) 200 mg PO Q4H PRN PRN Reason: Cough Hydralazine HCl (Apresoline) 10 mg SLOW IVP Q4H PRN PRN Reason: SBP > 180 and HR < 70 Levofloxacin 750 mg/ Device 150 mls @ 100 mls/hr IVPB Q24HR [facility] Last Admin: 02/11/18 16:16 Dose: 150 mls Levothyroxine Sodium (Synthroid) 150 mcg PO 0600 [facility] Last Admin: 02/12/18 06:05 Dose: 150 mcg Loperamide HCl (Imodium) 2 mg PO PRN PRN PRN Reason: Diarrhea/Loose Stools Loratadine (Claritin) 10 mg PO DAILYPRN PRN PRN Reason: Sinus Symptoms Losartan Potassium (Cozaar) 50 mg PO DAILY [facility] Last Admin: 02/12/18 09:59 Dose: 50 mg Methylprednisolone Sodium Succinate (Solu-Medrol) 40 mg IVP Q6HR [facility] Last Admin: 02/12/18 06:05 Dose: 40 mg Mineral Oil/White Petrolatum (Eucerin Cream) 0 gm TOP BIDPRN PRN PRN Reason: Dry Skin Montelukast Sodium (Singulair) 10 mg PO QPM [facility] Last Admin: 02/11/18 21:12 Dose: 10 mg Ondansetron HCl (Zofran Odt) 4 mg PO Q6H PRN PRN Reason: Nausea/Vomiting Ondansetron HCl (Zofran) 4 mg IVP Q6H PRN PRN Reason: Nausea/Vomiting Senna/Docusate Sodium (Senokot S) 2 tab PO BID PRN PRN Reason: Constipation Sodium Chloride ([place] Nasal [place] 0.65%) 0 ml EA NARE QIDPRN PRN PRN Reason: Nasal Congestion Theophylline (Theophylline Sr) 400 mg PO DAILY [facility] Last Admin: 02/12/18 09:58 Dose: 400 mg Throat Lozenges (Cepastat Lozenges) 1 radha PO Q2H PRN PRN Reason: Sore Throat Zolpidem Tartrate (Ambien) 5 mg PO HSPRN PRN PRN Reason: Insomnia
[2018-02-12] MEDS: ALPRAZolam 0.25 MG TAB PO PRN ×2 (12:26→20:25)
--- NOTE | 2018-02-12 15:49 | PRG ---
DATE OF SERVICE: 02/12/2018 SUBJECTIVE: Denia Rico is complaining that she does not feel any better, but she is actually talking in longer sentences and less distress today. OBJECTIVE: VITAL SIGNS: She is afebrile. Heart rates in the 90s, respiratory rates in the 20s, oximetry is 93% on 3 L cannula. She still wants to be on and off BiPAP. Blood pressure 115/58. LUNGS: Remarkable for faint wheezes. HEART: Regular rhythm. ABDOMEN: Soft. LABORATORY DATA: There is no new lab. IMPRESSION: Chronic obstructive pulmonary disease exacerbation. We will add theophylline to see if this helps. Increase her nebulized treatments to q.3 hours to see if this helps. Job ID: [id number] MTDD
[2018-02-12] MEDS: Montelukast Sodium 10 mg Tablet PO SCH (20:26)
[2018-02-13] MEDS: Levothyroxine 150 MCG TAB PO SCH (05:19)
[2018-02-13] MEDS: Budesonide 0.5 MG/2 ML NEB INH SCH ×2 (07:48→18:20)
[2018-02-13] MEDS: Amlodipine 5 MG TAB PO SCH (09:10)
[2018-02-13] MEDS: Enoxaparin Sodium 40 MG/0.4 ML SYRINGE SC SCH (09:10)
[2018-02-13] MEDS: Famotidine 20 MG TAB PO SCH ×2 (09:10→21:34)
[2018-02-13] MEDS: guaiFENesin ER 600 MG TAB PO SCH ×2 (09:11→21:34)
[2018-02-13] MEDS: Losartan 25 MG TAB PO SCH (09:11)
--- NOTE | 2018-02-13 09:44 | PRG ---
DATE OF SERVICE: 02/13/2018 SUBJECTIVE: The patient is doing poorly. She is requiring BiPAP most of the time. She is not eating much. OBJECTIVE: VITAL SIGNS: On exam, temperature 97.0, pulse 89, respirations 20, O2 saturation 99% on BiPAP, blood pressure 157/67. HEENT: Unremarkable. NECK: No JVD. LUNGS: Clear, but distant breath sounds. CARDIAC: S1, S2. Regular. ABDOMEN: Soft. EXTREMITIES: No edema. ASSESSMENT: 1. 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 2. Chronic hypoxic and hypercapnic respiratory failure. PLAN: Because of hallucinations, I have decreased her steroid dose. She continues on the theophylline and the Levaquin. She is also on every 3-hour nebulization treatment. I spoke to the daughter about the patient's poor prognosis. Job ID: [id number]
--- NOTE | 2018-02-13 11:21 | PDOC.PN ---
- Subjective Encounter Start Date: 02/13/18 Encounter Start Time: 07:00 last night she was hallucinating, still has dyspnea, she is not feeling subjectively better, no fever Patient seen and examined. No overnight events - Objective Resuscitation Status - Order Detail: 02/08/18 13:11 Resuscitation Status Routine Resuscitation Status: DNAR: NO Resuscitation Discussed with: discussed with pt and daughter IDA Reviewed: Yes Vital Signs & Weight: Vital Signs (12 hours) Temp Pulse Resp BP Pulse Ox 02/13/18 10:20 95 02/13/18 10:17 98 24 H 95 02/13/18 09:10 89 02/13/18 08:00 94 L 02/13/18 07:48 89 22 H 99 02/13/18 07:46 89 22 H 99 02/13/18 07:28 97.0 F L 99 24 H 157/67 H 98 02/13/18 04:09 97 24 H 92 L 02/13/18 04:00 97.8 F 89 24 H 133/5 L 90 L 02/13/18 00:27 109 H 24 H 92 L 02/13/18 00:00 97.0 F L 94 24 H 151/51 H 92 L Weight Weight 125 lb 14.4 oz I&O: 02/12/18 02/13/18 02/14/18 06:59 06:59 06:59 Intake Total 1060 960 Output Total 650 Balance 410 960 Result Diagrams: 02/09/18 04:01 02/09/18 04:01 EKG Reviewed by me: Yes (nsr) Phys Exam - Physical Examination Constitutional: NAD HEENT: PERRLA, moist MMs, sclera anicteric Neck: no JVD, supple Respiratory: wheezing present reduced air entry bilateral Cardiovascular: RRR, no significant murmur, no rub Gastrointestinal: soft, non-tender, no distention, positive bowel sounds Musculoskeletal: no edema, pulses present Neurological: non-focal, normal sensation, moves all 4 limbs Lymphatic: no nodes Psychiatric: normal affect, A&O x 3 Skin: no rash, normal turgor Dx/Plan (1) Acute on chronic respiratory failure with hypoxia and hypercapnia Code(s): J96.21 - ACUTE AND CHRONIC RESPIRATORY FAILURE WITH HYPOXIA; J96.22 - ACUTE AND CHRONIC RESPIRATORY FAILURE WITH HYPERCAPNIA Status: Acute (2) COPD exacerbation Code(s): J44.1 - CHRONIC OBSTRUCTIVE PULMONARY DISEASE W (ACUTE) EXACERBATION Status: Acute (3) Hypertension Code(s): I10 - ESSENTIAL (PRIMARY) HYPERTENSION Status: Chronic (4) Hypothyroidism Code(s): E03.9 - HYPOTHYROIDISM, UNSPECIFIED Status: Chronic - Plan cont current plan of care, plan discussed w/ family, continue antibiotics, respiratory therapy * today solumderol reduced to 20 mg iv q 6 hourly * continue po levaquin * continue theophylline * currently on maximum copd treatment * discussed with family * 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 Review of Systems - Review of Systems Constitutional: weakness. negative: fever, chills, sweats, malaise, other Eyes: negative: Pain, Vision Change, Conjunctivae Inflammation, Eyelid Inflammation, Redness, Other ENT: negative: Ear Pain, Ear Discharge, Nose Pain, Nose Discharge, Nose Congestion, Mouth Pain, Mouth Swelling, Throat Pain, Throat Swelling, Other Respiratory: Cough, Shortness of Breath, SOB with Excertion, Wheezing. negative : Dry, Hemoptysis, Pleuritic Pain, Sputum Cardiovascular: negative: chest pain, palpitations, orthopnea, paroxysmal nocturnal dyspnea, edema, light headedness, other Gastrointestinal: negative: Nausea, Vomiting, Abdominal Pain, Diarrhea, Constipation, Melena, Hematochezia, Other Genitourinary: negative: Dysuria, Frequency, Incontinence, Hematuria, Retention , Other Musculoskeletal: negative: Neck Pain, Shoulder Pain, Arm Pain, Back Pain, Hand Pain, Leg Pain, Foot Pain, Other Skin: negative: Rash, Lesions, Mina, Bruising, Other - Medications/Allergies Allergies/Adverse Reactions: Allergies Allergy/AdvReac Type Severity Reaction Status Date / Time No Known Allergies Allergy Verified 02/08/18 17:22 Medications: Current Medications Acetaminophen (Tylenol) 650 mg PO Q4H PRN PRN Reason: Headache/Fever/Mild Pain (1-3) Hydrocodone Bitart/Acetaminophen ([place] 5/325) 1 tab PO Q4H PRN PRN Reason: Moderate Pain (4-6) Albuterol/Ipratropium (Duoneb) 3 ml NEB [id number] PRN PRN Reason: SOB &/or Wheezing Albuterol/Ipratropium (Duoneb) 3 ml NEB [id number] ROSANNA Last Admin: 12/17/18 10:17 Dose: 3 ml Alprazolam (Xanax) 0.25 mg PO TID PRN PRN Reason: Anxiety Last Admin: 02/12/18 20:25 Dose: 0.25 mg Amlodipine Besylate (Norvasc) 2.5 mg PO DAILY [facility] Last Admin: 02/13/18 09:10 Dose: 2.5 mg Artificial Tears (Tears Naturale) 2 drop EA EYE PRN PRN PRN Reason: Dry Eyes Aspirin (Aspirin Chewable) 81 mg PO DAILY [facility] Last Admin: 02/13/18 09:10 Dose: 81 mg Bisacodyl (Dulcolax) 10 mg [place] DAILYPRN PRN PRN Reason: Constipation Budesonide (Pulmicort Neb Solution) 0.5 mg INH BID-RT [facility] Last Admin: 02/13/18 07:48 Dose: 0.5 mg Calcium Carbonate (Tums) 1,000 mg PO Q4H PRN PRN Reason: Heartburn or Indigestion Clonidine (Catapres) 0.1 mg PO Q4H PRN PRN Reason: SBP Greater Than 170 Enoxaparin Sodium (Lovenox) 40 mg SC 0900 [facility] Last Admin: 02/13/18 09:10 Dose: 40 mg Famotidine (Pepcid) 20 mg PO BID [facility] Last Admin: 02/13/18 09:10 Dose: 20 mg Fluticasone Propionate (Flonase Nasal [place]) 0 gm NASAL DAILY [facility] Last Admin: 02/12/18 10:08 Dose: Not Given Guaifenesin (Mucinex) 600 mg PO Q12HR [facility] Last Admin: 02/13/18 09:11 Dose: 600 mg Guaifenesin (Robitussin Sf) 200 mg PO Q4H PRN PRN Reason: Cough Hydralazine HCl (Apresoline) 10 mg SLOW IVP Q4H PRN PRN Reason: SBP > 180 and HR < 70 Levofloxacin (Levaquin) 750 mg PO 1500 [facility] Last Admin: 02/12/18 17:25 Dose: 750 mg Levothyroxine Sodium (Synthroid) 150 mcg PO 0600 [facility] Last Admin: 02/13/18 05:19 Dose: 150 mcg Loperamide HCl (Imodium) 2 mg PO PRN PRN PRN Reason: Diarrhea/Loose Stools Loratadine (Claritin) 10 mg PO DAILYPRN PRN PRN Reason: Sinus Symptoms Losartan Potassium (Cozaar) 50 mg PO DAILY [facility] Last Admin: 02/13/18 09:11 Dose: 50 mg Methylprednisolone Sodium Succinate (Solu-Medrol) 20 mg IVP Q6H [facility] Last Admin: 02/13/18 09:11 Dose: 20 mg Mineral Oil/White Petrolatum (Eucerin Cream) 0 gm TOP BIDPRN PRN PRN Reason: Dry Skin Montelukast Sodium (Singulair) 10 mg PO QPM [facility] Last Admin: 02/12/18 20:26 Dose: 10 mg Ondansetron HCl (Zofran Odt) 4 mg PO Q6H PRN PRN Reason: Nausea/Vomiting Ondansetron HCl (Zofran) 4 mg IVP Q6H PRN PRN Reason: Nausea/Vomiting Senna/Docusate Sodium (Senokot S) 2 tab PO BID PRN PRN Reason: Constipation Sodium Chloride ([place] Nasal [address] 0.65%) 0 ml EA NARE QIDPRN PRN PRN Reason: Nasal Congestion Sodium Chloride (Flush - Normal Saline) 10 ml IVF Q12HR [facility] Last Admin: 02/13/18 09:12 Dose: 10 ml Sodium Chloride (Flush - Normal Saline) 10 ml IVF PRN PRN PRN Reason: Saline Flush Theophylline (Theophylline Sr) 400 mg PO DAILY [facility] Last Admin: 02/13/18 09:20 Dose: 400 mg Throat Lozenges (Cepastat Lozenges) 1 radha PO Q2H PRN PRN Reason: Sore Throat Zolpidem Tartrate (Ambien) 5 mg PO HSPRN PRN PRN Reason: Insomnia
[2018-02-13] MEDS: Fluticasone Propionate Nasal Spray 16 gm Bottle NASAL SCH (14:29)
[2018-02-13] MEDS: Montelukast Sodium 10 mg Tablet PO SCH (21:34)
[2018-02-13] MEDS: ALPRAZolam 0.25 MG TAB PO PRN (21:34)
[2018-02-14 05:22] LABS: Anion Gap 13 mmol/L (10-20); BUN (Urea Nitrogen) 85 mg/dL (9.8-20.1); Calc. Creatinine Clearance 23 mL/min (70-130); Calcium 9.1 mg/dL (7.8-10.44); Carbon Dioxide 37 mmol/L (23-31); Chloride 99 mmol/L (98-107); Estimated GFR-MDRD 30; Glucose 127 mg/dL (83-110); Potassium 5.9 mmol/L (3.5-5.1); Sodium 143 mmol/L (136-145)
[2018-02-14] MEDS: Levothyroxine 150 MCG TAB PO SCH (06:09)
[2018-02-14] MEDS ORDERED: Sodium Chloride 0.9% 1,000 ML IV SCH (07:15)
[2018-02-14] MEDS ORDERED: Amlodipine 10 MG TAB PO SCH (09:00)
--- NOTE | 2018-02-14 09:29 | PRG ---
DATE OF SERVICE: 02/14/2018 SUBJECTIVE: The patient has done very poorly over the last 24 hours. She is fairly dependent on the BiPAP at this point. OBJECTIVE: VITAL SIGNS: Temperature 99.0, pulse 105, respirations 25, O2 saturation 100% on BiPAP, blood pressure 140/67. HEENT: Unremarkable. NECK: No JVD. LUNGS: Poor air movement. CARDIAC: S1 and S2, regular. ABDOMEN: Soft. EXTREMITIES: No edema. LABORATORY DATA: Sodium 143, potassium 5.9, chloride 99, CO2 37, BUN 85, creatinine 1.6, glucose 127. ASSESSMENT: 1. Severe chronic obstructive pulmonary disease with chronic respiratory failure. 2. Development of hyperkalemia and renal insufficiency. PLAN: I am going to go ahead and stop the theophylline given her decrease in renal function. Her hyperkalemia needs to be addressed. Job ID: [id number]
[2018-02-14] MEDS: Famotidine 20 MG TAB PO SCH (10:01)
[2018-02-14] MEDS: Enoxaparin Sodium 40 MG/0.4 ML SYRINGE SC SCH (10:01)
[2018-02-14] MEDS: Fluticasone Propionate Nasal Spray 16 gm Bottle NASAL SCH (10:01)
[2018-02-14] MEDS: guaiFENesin ER 600 MG TAB PO SCH ×2 (10:02→20:06)
[2018-02-14] MEDS: Budesonide 0.5 MG/2 ML NEB INH SCH ×2 (10:42→19:00)
--- NOTE | 2018-02-14 11:11 | PDOC.PN ---
- Subjective Encounter Start Date: 02/14/18 Encounter Start Time: 10:00 Patient seen and examined. No new complaints. No overnight events she is on bipap, today her creatinine and potassium elevated - Objective Resuscitation Status - Order Detail: 02/08/18 13:11 Resuscitation Status Routine Resuscitation Status: DNAR: NO Resuscitation Discussed with: discussed with pt and daughter IDA Reviewed: Yes Vital Signs & Weight: Vital Signs (12 hours) Temp Pulse Resp BP Pulse Ox 02/14/18 10:42 98 22 H 100 02/14/18 10:41 96 22 H 100 02/14/18 10:01 105 H 02/14/18 07:36 99.0 F 105 H 25 H 140/67 100 02/14/18 06:37 94 L 02/14/18 04:14 99 02/14/18 04:00 98.9 F 98 25 H 165/75 H 100 02/14/18 03:31 91 16 95 02/14/18 00:19 94 L 02/14/18 00:18 103 H 02/14/18 00:17 89 12 100 02/14/18 00:00 98.3 F 94 15 121/49 L 100 Weight Weight 125 lb 14.4 oz I&O: 02/13/18 02/14/18 02/15/18 06:59 06:59 06:59 Intake Total 960 600 Balance 960 600 Result Diagrams: 02/09/18 04:01 02/14/18 04:51 EKG Reviewed by me: Yes (nsr) Phys Exam - Physical Examination Constitutional: NAD on bipap HEENT: PERRLA, moist MMs, sclera anicteric Neck: no JVD, supple Respiratory: no wheezing, no rales, no rhonchi reduced air entry Cardiovascular: RRR, no significant murmur, no rub Gastrointestinal: soft, non-tender, no distention, positive bowel sounds Musculoskeletal: no edema, pulses present Neurological: non-focal, normal sensation, moves all 4 limbs Psychiatric: normal affect, A&O x 3 Skin: no rash, normal turgor Dx/Plan (1) Acute on chronic respiratory failure with hypoxia and hypercapnia Code(s): J96.21 - ACUTE AND CHRONIC RESPIRATORY FAILURE WITH HYPOXIA; J96.22 - ACUTE AND CHRONIC RESPIRATORY FAILURE WITH HYPERCAPNIA Status: Acute (2) COPD exacerbation Code(s): J44.1 - CHRONIC OBSTRUCTIVE PULMONARY DISEASE W (ACUTE) EXACERBATION Status: Acute (3) Hypertension Code(s): I10 - ESSENTIAL (PRIMARY) HYPERTENSION Status: Chronic (4) Hypothyroidism Code(s): E03.9 - HYPOTHYROIDISM, UNSPECIFIED Status: Chronic (5) Acute kidney failure Status: Acute (6) Hyperkalemia Code(s): E87.5 - HYPERKALEMIA Status: Acute - Plan cont current plan of care, plan discussed w/ family, continue antibiotics, respiratory therapy * hold losartan due to hyperkalemia * start gentle IVF for acute kidney failure * continue current maximum copd treatment as per pulmonary * medication reviewed as below * symptomatic treatment * discussed with family bedside Review of Systems - Review of Systems Constitutional: weakness. negative: fever, chills, sweats, malaise, other Respiratory: Shortness of Breath, SOB with Excertion. negative: Cough, Dry, Hemoptysis, Pleuritic Pain, Sputum, Wheezing Cardiovascular: negative: chest pain, palpitations, orthopnea, paroxysmal nocturnal dyspnea, edema, light headedness, other Gastrointestinal: negative: Nausea, Vomiting, Abdominal Pain, Diarrhea, Constipation, Melena, Hematochezia, Other Genitourinary: negative: Dysuria, Frequency, Incontinence, Hematuria, Retention , Other Musculoskeletal: negative: Neck Pain, Shoulder Pain, Arm Pain, Back Pain, Hand Pain, Leg Pain, Foot Pain, Other Skin: negative: Rash, Lesions, Mina, Bruising, Other - Medications/Allergies Allergies/Adverse Reactions: Allergies Allergy/AdvReac Type Severity Reaction Status Date / Time No Known Allergies Allergy Verified 02/08/18 17:22 Medications: Current Medications Acetaminophen (Tylenol) 650 mg PO Q4H PRN PRN Reason: Headache/Fever/Mild Pain (1-3) Hydrocodone Bitart/Acetaminophen ([place] 5/325) 1 tab PO Q4H PRN PRN Reason: Moderate Pain (4-6) Albuterol/Ipratropium (Duoneb) 3 ml NEB [id number] PRN PRN Reason: SOB &/or Wheezing Albuterol/Ipratropium (Duoneb) 3 ml NEB [id number] ROSANNA Last Admin: 02/14/18 10:41 Dose: 3 ml Alprazolam (Xanax) 0.25 mg PO TID PRN PRN Reason: Anxiety Last Admin: 02/13/18 21:34 Dose: 0.25 mg Amlodipine Besylate (Norvasc) 10 mg PO DAILY [facility] Last Admin: 02/14/18 10:01 Dose: 10 mg Artificial Tears (Tears Naturale) 2 drop EA EYE PRN PRN PRN Reason: Dry Eyes Aspirin (Aspirin Chewable) 81 mg PO DAILY [facility] Last Admin: 02/14/18 10:01 Dose: 81 mg Bisacodyl (Dulcolax) 10 mg [place] DAILYPRN PRN PRN Reason: Constipation Budesonide (Pulmicort Neb Solution) 0.5 mg INH BID-RT [facility] Last Admin: 02/14/18 10:42 Dose: 0.5 mg Calcium Carbonate (Tums) 1,000 mg PO Q4H PRN PRN Reason: Heartburn or Indigestion Clonidine (Catapres) 0.1 mg PO Q4H PRN PRN Reason: SBP Greater Than 170 Enoxaparin Sodium (Lovenox) 40 mg SC 0900 [facility] Last Admin: 02/14/18 10:01 Dose: 40 mg Famotidine (Pepcid) 20 mg PO BID [facility] Last Admin: 02/14/18 10:01 Dose: 20 mg Fluticasone Propionate (Flonase Nasal [place]) 0 gm NASAL DAILY [facility] Last Admin: 02/14/18 10:01 Dose: 2 sprays Guaifenesin (Mucinex) 600 mg PO Q12HR [facility] Last Admin: 02/14/18 10:02 Dose: Not Given Guaifenesin (Robitussin Sf) 200 mg PO Q4H PRN PRN Reason: Cough Hydralazine HCl (Apresoline) 10 mg SLOW IVP Q4H PRN PRN Reason: SBP > 180 and HR < 70 Sodium Chloride (Normal Saline 0.9%) 1,000 mls @ 70 mls/hr IV .[id number] [facility] Stop: 02/14/18 21:32 Last Admin: 02/14/18 10:00 Dose: 1,000 mls Levofloxacin (Levaquin) 750 mg PO 1500 [facility] Last Admin: 02/13/18 17:30 Dose: 750 mg Levothyroxine Sodium (Synthroid) 150 mcg PO 0600 [facility] Last Admin: 02/14/18 06:09 Dose: 150 mcg Loperamide HCl (Imodium) 2 mg PO PRN PRN PRN Reason: Diarrhea/Loose Stools Loratadine (Claritin) 10 mg PO DAILYPRN PRN PRN Reason: Sinus Symptoms Methylprednisolone Sodium Succinate (Solu-Medrol) 20 mg IVP Q6H [facility] Last Admin: 02/14/18 10:02 Dose: 20 mg Mineral Oil/White Petrolatum (Eucerin Cream) 0 gm TOP BIDPRN PRN PRN Reason: Dry Skin Montelukast Sodium (Singulair) 10 mg PO QPM [facility] Last Admin: 02/13/18 21:34 Dose: 10 mg Ondansetron HCl (Zofran Odt) 4 mg PO Q6H PRN PRN Reason: Nausea/Vomiting Ondansetron HCl (Zofran) 4 mg IVP Q6H PRN PRN Reason: Nausea/Vomiting Senna/Docusate Sodium (Senokot S) 2 tab PO BID PRN PRN Reason: Constipation Sodium Chloride ([place] Nasal [place] 0.65%) 0 ml EA NARE QIDPRN PRN PRN Reason: Nasal Congestion Sodium Chloride (Flush - Normal Saline) 10 ml IVF Q12HR [facility] Last Admin: 02/14/18 10:14 Dose: Not Given Sodium Chloride (Flush - Normal Saline) 10 ml IVF PRN PRN PRN Reason: Saline Flush Last Admin: 02/14/18 03:39 Dose: 10 ml Sodium Polystyrene Sulfonate (Kayexelate Oral Susp 15 Gm/60 Ml) 15 gm PO ONE [facility] Stop: 02/14/18 12:00 Last Admin: 02/14/18 10:09 Dose: 15 gm Throat Lozenges (Cepastat Lozenges) 1 radha PO Q2H PRN PRN Reason: Sore Throat Zolpidem Tartrate (Ambien) 5 mg PO HSPRN PRN PRN Reason: Insomnia
--- NOTE | 2018-02-14 17:27 | DIS ---
DATE OF ADMISSION: 02/08/2018 DATE OF DISCHARGE: 02/14/2018 PRIMARY CARE PHYSICIAN: Janes Oconnor MD DISCHARGE DISPOSITION: Inpatient hospice facility. PRIMARY DISCHARGE DIAGNOSES: [id number] respiratory failure with hypoxia and hypercapnia, chronic obstructive pulmonary disease exacerbation, acute kidney failure, hyperkalemia. SECONDARY DISCHARGE DIAGNOSES: End-stage chronic obstructive pulmonary disease, hypertension, hypothyroidism, anxiety and depression. PRIMARY PROCEDURE/OPERATION: None. RADIOLOGICAL INVESTIGATION: Chest x-ray showed COPD changes. Echocardiography showed normal EF. LABORATORY DATA: Significant labs; WBC 5.1, hemoglobin 11.7, platelets 164. Sodium 143, potassium 5.9, BUN 85, creatinine 1.63, calcium 9.1. LFT normal. Cardiac enzyme negative. BNP 344. Urinalysis unremarkable. Blood culture, urine culture negative. DISCHARGE MEDICATIONS: 1. Xanax 0.125 mg p.o. at bedtime and p.r.n. 2. Amlodipine 10 mg p.o. daily. 3. Aspirin 81 mg daily. 4. DuoNeb every 3 hours p.r.n. 5. Pulmicort nebulization twice daily. 6. Mucinex 600 mg twice daily. 7. Brovana 15 mcg nebulization daily. 8. Levaquin 250 mg daily for 7 days. 9. Prednisone 20 mg p.o. b.i.d. for 7 days. 10. Singulair 10 mg p.o. daily. 11. Levothyroxine 150 mcg p.o. daily. CONTRAINDICATION: None. CODE STATUS: DNR. CODE STATUS: DNR. INPATIENT CONSULT: Dr. Cifuentes was following while in hospital. TEST RESULTS PENDING ON DISCHARGE: None. ALLERGIES: NO KNOWN DRUG ALLERGIES. DISCHARGE PLAN: Posthospital, the patient is discharged to inpatient hospice facility per patient request. HOSPITAL COURSE: An 83-year-old female, who has a terminal COPD, who was brought to ER by paramedics for respiratory distress. The patient was admitted by me on 02/08/2018. Please see my HPI for further details. The patient was in a hypoxic and hypercapnic respiratory failure. She was requiring BiPAP. She was admitted to [facility]. Pulmonary group was consulted and they were following while in the hospital. This patient's condition did not improve significantly even with maximum treatment of a COPD. This patient also developed acute kidney failure as well as hyperkalemia. She has started IV fluid. The patient was given maximum treatment for COPD including steroid antibiotic therapy, Brovana, DuoNeb, Pulmicort, Mucinex, Singulair, but the patient's condition did not improve significantly and that is why the patient and family member choose on the day of discharge to go to hospice for comfort care. Hospice team evaluated this patient and the patient is discharged to inpatient hospice facility for comfort care. The patient is seen and examined at bedside today. Please see my progress note from today for further details. Total time spent on discharge 31 minute. Job ID: [id number]
[2018-02-14] MEDS: ALPRAZolam 0.25 MG TAB PO PRN (19:08)
[2018-02-14 19:41] VITALS: BP 177/72; TEMP 98.5
[2018-02-14] MEDS: Montelukast Sodium 10 mg Tablet PO SCH (20:06)
[2018-02-15] MEDS ORDERED: Famotidine 20 MG TAB PO SCH (09:00)
[2018-02-15] MEDS ORDERED: Enoxaparin Sodium 30 MG/0.3 ML SYRINGE SC SCH (09:00)
== END 2018-02-14 20:21 | disposition hospice, inpatient (51) | DRG 189 ==
LOC: ERS 09:48 → IMCU/EMU 13:11
PROVIDERS: ADMIT Internal Medicine; ATTEND Internal Medicine
PROC: 5A09357 Assistance with Respiratory Ventilation, Less than 24 Consecutive Hours, Continuous Positive Airway Pressure (ICD-10-PCS; principal; 2018-02-08)
DX: J96.21 Acute and chronic respiratory failure with hypoxia (principal); J44.1 Chronic obstructive pulmonary disease with (acute) exacerbation; N17.9 Acute kidney failure, unspecified; J96.22 Acute and chronic respiratory failure with hypercapnia; I10 Essential (primary) hypertension; Z66 Do not resuscitate; E03.9 Hypothyroidism, unspecified; F32.9 Major depressive disorder, single episode, unspecified; F41.9 Anxiety disorder, unspecified; E87.5 Hyperkalemia; Z99.81 Dependence on supplemental oxygen; Z87.891 Personal history of nicotine dependence; Z79.82 Long term (current) use of aspirin; Z79.899 Other long term (current) drug therapy
CPT/HCPCS: 36415; 51701; 71045; 80048; 80053; 81003; 81015; 82805; 83605; 83880; 84484; 85025; 87040; 87086; 93005; 93306; 94640; 94660; 96374; 96375; A4353; J1650; J1956; J2920; J2930; J7620; J7626; Q0162